=== PATIENT | female | born 1995 | race Caucasian/White ===

== ENCOUNTER 2019-06-22 10:55 | Emergency (ER) | payer SELFPAY ==
[2019-06-22 11:19] VITALS: BP 115/66; PULSE 86; RESP 16; TEMP 36.7; O2SAT 98; BMI 41.1
--- NOTE | 2019-06-22 11:33 | PC.NURSE ---
Patient reports that she got 2 tattoos Friday on her feet. Patient states she started noticing redness in her left foot the day she got it done. Patient reports that it has not went away and the pain has got much worse. Patient states she is unable to put any weight on her foot. Patient reports some pain and redness in the right foot as well.
--- NOTE | 2019-06-22 11:38 | ED_ITS ---
HPI - Wound/Laceration General: Chief Complaint: Wound/Laceration Stated Complaint: tattoo infection Time Seen by Provider: 06/22/19 11:30 Source: patient Mode of arrival: ambulatory Limitations: no limitations History of Present Illness: HPI narrative: Patient had tattoo placed about 3 days ago. On the left foot she has had increased redness and swelling. Patient also had a tattoo done on the right foot at the same time in same fashion without any abnormalities to it. Patient appears well. Patient appears in mild pain. Review of Systems General: Reports: 10 or more systems reviewed and unremarkable except in HPI and below Skin/Breast: Reports: redness PFSH ED PFSH: Social History Smoking and tobacco status: current every day smoker Female Reproductive History: Date of last menstrual period: 06/17/21 Physical Exam Const: COMMON NORMALS: no apparent distress and oriented x3 GENERAL APPEARANCE: cooperative HENMT: COMMON NORMALS: normocephalic, external ears normal, EAC's normal, TM's normal bilaterally and external nose normal HEAD & SCALP: normal to inspection and normocephalic FACE & SINUS: normal facial exam NOSE: external nose normal GENERAL EAR: hearing not grossly impaired EXTERNAL EAR: Yes external ears normal EXTERNAL AUDITORY CANAL: EAC's normal TYMPANIC MEMBRANE: TM's normal bilaterally MOUTH: oral and palatal mucosa normal THROAT: posterior oropharynx normal Eye: COMMON NORMALS: PERRL and EOMs intact bilaterally PUPIL: Yes PERRL Neck/C-Spine: COMMON NORMALS: full ROM and no lymphadenopathy Lymph: LYMPHATIC: no lymphedema noted Chest: COMMONS NORMALS: inspection of chest normal and palpation of chest normal Resp: COMMON NORMALS: normal respiratory effort and clear to auscultation bilaterally AUSCULTATION: clear to auscultation bilaterally Cardio: COMMON NORMALS: regular rate and regular rhythm RATE: regular rate RHYTHM: regular rhythm GI: COMMON NORMALS: normal to inspection, nondistended, normoactive bowel sounds and non-tender : COMMON NORMALS: Yes no CVA tenderness BLADDER/KIDNEY EXAM: Yes no CVA tenderness Back/Pelvis: COMMON NORMALS: no CVA tenderness and thoracic and lumbar spine normal to inspection Extremity: GENERAL: Yes edema (left foot) LEFT LOWER EXTREMITY: Yes foot & digits (redness and swelling left foot) Neuro: COMMON NORMALS: oriented x3, moves all extremities and no focal motor deficits Psych: COMMON NORMALS: mental status grossly normal and cooperative Skin: COMMON NORMALS: no rashes or lesions noted GENERAL SKIN EXAM: no rashes or lesions noted Course Vital Signs: Vital signs: Vital Signs Temperature 98.1 F 06/22/19 11:19 Pulse Rate 86 06/22/19 11:19 Respiratory Rate 16 06/22/19 11:19 Blood Pressure 115/66 06/22/19 11:19 Pulse Oximetry 98 06/22/19 11:19 MDM - Wound/Laceration MDM Narrative: Medical decision making narrative: Patient presents with redness and swelling to the left lower foot. Patient recent tattoo placed. S imilar tattoo was placed on the right foot without any abnormalities. Exam notes redness tenderness and swelling with some warmth to it. Vital signs were normal. Differential diagnosis includes cellulitis, reaction to tattoo ink, DVT. No significant swelling is noted in the calf or pain is noted in the calf so I do not think it is a DVT. Pulses are intact to the extremity. Patient does have tenderness in the area with surrounding redness. Strongly suggests cellulitis. Patient be treated for cellulitis with antibiotics and medication for pain. Patient reports understanding of care plan and need for follow-up Discharge Plan Discharge Patient Disposition: Home, Self-Care Clinical Impression: Cellulitis Qualifiers: Site of cellulitis: extremity Site of cellulitis of extremity: lower extremity Laterality: left Qualified Code(s): L03.116 - Cellulitis of left lower limb Condition: Stable Prescriptions: New hydrocodone-acetaminophen 5-325 mg tablet 1 tab PO Q6H PRN (Reason: pain) Qty: 10 RF: 0 ibuprofen 800 mg tablet 800 mg PO Q8H PRN (Reason: pain) Qty: 30 RF: 0 sulfamethoxazole-trimethoprim [Bactrim DS] 800-160 mg tablet 1 tab PO Q12H 10 Days Qty: 20 RF: 0 No Action No Known Home Medications RF: 0 Discharge Orders: Discharge Order (Routine); Ordered 06/22/19 Ordered By: Michael Sweeney Discharge Diet: Usual diet Discharge Activity: Increase activity as tolerated Patient Instructions: Cellulitis (ED) Activity Restrictions/Additional Instructions: Drink plenty of fluids Activity as tolerated Medications as directed Follow-up with primary care Stand Alone Forms: Work/School Release Coding Level of Care Code ED Entry Level Mechanical Engineer for Chg Fwd Exam Comprehensive
[2019-06-22] MEDS: HYDROcodone-acetaminophen 7.5-325 mg Tablet 1 TAB PO (11:44)
[2019-06-22] MEDS: cefTRIAXone 1,000 mg SDV 1000 MG IM (11:45)
[2019-06-22 12:07] VITALS: BP 97/67; PULSE 74; RESP 17; O2SAT 96
== END 2019-06-22 12:15 | disposition home or self-care (01) ==
PROVIDERS: Emergency Provider Nurse Practitioner Family
DX: L03.116 Cellulitis of left lower limb (principal); F17.200 Nicotine dependence, unspecified, uncomplicated
CPT/HCPCS: 96372; 99281; 99283; J0696

== ENCOUNTER 2019-06-25 09:45 | Emergency (ER) | payer SELFPAY ==
[2019-06-25 09:50] VITALS: BP 109/68; PULSE 104; RESP 18; TEMP 37.6; O2SAT 97; BMI 41.1
--- NOTE | 2019-06-25 09:57 | W.ED.GENADLT ---
HPI - General Adult General: Chief complaint: General Medical Stated complaint: TEMP COUGH Time Seen by Provider: 06/25/19 09:57 Source: patient Mode of arrival: ambulatory Limitations: no limitations History of Present Illness: HPI narrative: 24-year-old female comes in today with cough, fever, nausea and vomiting. Patient states that she was seen on Friday for a infection in her foot which has improved. But for the last 24 to 48 hours she started feeling ill again and having sinus symptoms with occasional vomiting. Patient appears mildly unwell. Patient appears in no pain. Associated symptoms: Reports nausea and vomiting Review of Systems General: Reports: 10 or more systems reviewed and unremarkable except in HPI and below ENMT: Reports: throat pain and nasal congestion Resp: Reports: productive cough GI: Reports: nausea and vomiting PFSH ED PFSH: Social History Smoking and tobacco status: current every day smoker Female Reproductive History: Date of last menstrual period: 06/19/19 Physical Exam Const: COMMON NORMALS: no apparent distress and oriented x3 GENERAL APPEARANCE: cooperative HENMT: COMMON NORMALS: normocephalic, external ears normal, EAC's normal, TM's normal bilaterally and external nose normal HEAD & SCALP: normal to inspection and normocephalic FACE & SINUS: normal facial exam NOSE: external nose normal GENERAL EAR: hearing not grossly impaired EXTERNAL EAR: Yes external ears normal EXTERNAL AUDITORY CANAL: EAC's normal TYMPANIC MEMBRANE: TM's normal bilaterally MOUTH: oral and palatal mucosa normal THROAT: posterior oropharynx normal Eye: COMMON NORMALS: PERRL and EOMs intact bilaterally PUPIL: Yes PERRL Neck/C-Spine: COMMON NORMALS: full ROM and no lymphadenopathy Lymph: LYMPHATIC: no lymphedema noted Chest: COMMONS NORMALS: inspection of chest normal and palpation of chest normal Resp: COMMON NORMALS: normal respiratory effort and clear to auscultation bilaterally AUSCULTATION: clear to auscultation bilaterally Cardio: COMMON NORMALS: regular rate and regular rhythm RATE: regular rate RHYTHM: regular rhythm GI: COMMON NORMALS: normal to inspection, nondistended, normoactive bowel sounds and non-tender : COMMON NORMALS: Yes no CVA tenderness BLADDER/KIDNEY EXAM: Yes no CVA tenderness Back/Pelvis: COMMON NORMALS: no CVA tenderness and thoracic and lumbar spine normal to inspection Extremity: COMMON NORMALS: normal to inspection GENERAL: No edema Neuro: COMMON NORMALS: oriented x3, moves all extremities and no focal motor deficits Psych: COMMON NORMALS: mental status grossly normal and cooperative Skin: COMMON NORMALS: no rashes or lesions noted GENERAL SKIN EXAM: no rashes or lesions noted Course Vital Signs: Vital signs: Vital Signs Temperature 99.7 F H 06/25/19 09:50 Pulse Rate 104 H 06/25/19 09:50 Respiratory Rate 17 06/25/19 10:03 Blood Pressure 109/68 06/25/19 09:50 Pulse Oximetry 97 06/25/19 09:50 MDM - General Adult MDM Narrative: Medical decision making narrative: Patient comes in today with complaints of cough, fever, congestion. Exam notes lungs clear to auscultation. Skin is warm and dry. Abdomen soft nontender. Review of cellulitis to the left foot shows improvement in swelling and redness from previous examination. Differential diagnosis includes influenza, pneumonia, upper respiratory infection. Influenza was positive for type B flu. Reviewed exam with patient with recommendations for treatment. Patient reports understanding agreed to plan. Lab Data: Labs: Lab Results 06/25/19 Range/Units 10:04 Influenza Type A A g Negative (Negative) POC Influenza B Ag Positive H (Negative) Discharge Plan Discharge Patient Disposition: Home, Self-Care Clinical Impression: Influenza B Condition: Stable Prescriptions: New oseltamivir 75 mg capsule 75 mg PO BID 5 Days Qty: 10 RF: 0 No Action sulfamethoxazole-trimethoprim [Bactrim DS] 800-160 mg tablet 1 tab PO Q12H 10 Days Qty: 20 RF: 0 hydrocodone-acetaminophen 5-325 mg tablet 1 tab PO Q6H PRN (Reason: pain) Qty: 10 RF: 0 ibuprofen 800 mg tablet 800 mg PO Q8H PRN (Reason: pain) Qty: 30 RF: 0 Discharge Orders: Discharge Order (Routine); Ordered 06/25/19 Ordered By: Michael Sweeney Discharge Diet: Usual diet Discharge Activity: Increase activity as tolerated Patient Instructions: Influenza (ED) Activity Restrictions/Additional Instructions: Drink plenty of fluids Acetaminophen and ibuprofen for pain and fever Healthy diet Medications as directed Follow-up with primary care in one week as needed Stand Alone Forms: Work/School Release Coding Level of Care Code ED Supervisor Graphite for Giannig Fwd Exam Comprehensive
[2019-06-25 10:03] VITALS: RESP 17
[2019-06-25 10:37] LABS: Influenza A by IFA Negative (Negative); Influenza B by IFA Positive (Negative)
[2019-06-25 10:50] VITALS: PULSE 78; RESP 16; O2SAT 97
== END 2019-06-25 10:51 | disposition home or self-care (01) ==
PROVIDERS: Emergency Provider Nurse Practitioner Family
DX: J11.1 Influenza due to unidentified influenza virus with other respiratory manifestations (principal); F17.200 Nicotine dependence, unspecified, uncomplicated
CPT/HCPCS: 87804; 99281; 99282

== ENCOUNTER 2019-10-10 15:36 | Emergency (ER) | payer SELFPAY ==
[2019-10-10 15:59] VITALS: BP 123/72; PULSE 81; RESP 16; TEMP 36.7; O2SAT 98; BMI 32.0
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
[2019-10-10 18:51] LABS: Add Urine Microscopic? YES; Bilirubin Urine Neg (NEGATIVE); Blood Urine Neg (Negative); Glucose Urine UA Norm (Normal); Ketones Urine Negative (Negative); Leukocyte Esterase Urine 2+ (Negative); Nitrate Urine Negative (Negative); Protein Urine Neg (Negative); Urine Appearance Cloudy (CLEAR); Urine Color Yellow (Yellow); Urobilinogen Urine Norm (Negative); pH Urine 5 (5-7)
[2019-10-10 18:59] LABS: Bacteria Urine 2+; Mucus Urine 4+; Squamous Epithelial Cell Urine 40-55 (0-5); WBC Urine 25-40 /hpf (0-5)
[2019-10-10 19:00] LABS: Add Urine Culture? No
[2019-10-10] MEDS: azithromycin 250 mg Tablet 1000 MG PO (19:12)
[2019-10-10] MEDS: cefTRIAXone 1,000 mg SDV 250 MG IM (19:13)
[2019-10-10 19:15] VITALS: RESP 16
--- NOTE | 2019-10-11 14:52 | PC.NURSE ---
pts STD panel came back positive for gonorrhea. lab result left with DR. lemos
== END 2019-10-10 19:15 | disposition home or self-care (01) ==
PROVIDERS: Emergency Provider Nurse Practitioner Family
DX: N76.0 Acute vaginitis (principal); F17.210 Nicotine dependence, cigarettes, uncomplicated
CPT/HCPCS: 12345; 81001; 81025; 87210; 87491; 87591; 87661; 96372; 99283; J0696; Q0144

== ENCOUNTER 2019-10-18 19:50 | Emergency (ER) | payer SELFPAY ==
[2019-10-18 19:58] VITALS: BP 112/73; PULSE 80; RESP 16; TEMP 36.7; O2SAT 97; BMI 31.8
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
--- NOTE | 2019-10-18 20:09 | XR_ITS ---
WS: [id number] RIGHT KNEE: 3 VIEW(S) TECHNIQUE: AP, oblique(s) and lateral. HISTORY: injury COMPARISON: None available. No fracture or dislocation. No joint space narrowing or osteophytes. No joint effusion. No soft tissue abnormality. XR/XR knee RT 3V* [id number] IMPRESSION: Normal RIGHT knee.
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
[2019-10-18] MEDS: naproxen 500 mg Tablet PO (20:22)
[2019-10-18 20:23] VITALS: PULSE 87
[2019-10-18 21:30] VITALS: BP 145/90; PULSE 79; RESP 16; O2SAT 99
--- NOTE | 2019-10-19 09:50 | DCPLANNER ---
clinic office manager had message to schedule a follow up appointment for patient with ortho. clinic office manager called the ortho clinic, spoke with Pat, gave clinic patients information. clinic office manager was told that patients information would be printed and reviewed. Clinic will call case specialist and patient with appointment information.
--- NOTE | 2019-10-20 08:40 | DCPLANNER ---
Patient has a follow up appointment scheduled for , October 21, [address] at 2:[address] Chen. Clinic will call patient with appointment information.
--- NOTE | 2019-10-26 15:17 | DCPLANNER ---
Patient did attend appointment scheduled for 10.21.19 with ortho.
== END 2019-10-18 21:32 | disposition home or self-care (01) ==
PROVIDERS: Emergency Provider Emergency Medicine
DX: S83.91XA Sprain of unspecified site of right knee, initial encounter (principal); W50.0XXA Accidental hit or strike by another person, initial encounter; F17.210 Nicotine dependence, cigarettes, uncomplicated
CPT/HCPCS: 12345; 29530; 73562; 73590; 73610; 99281; 99283; E0114

== ENCOUNTER 2019-10-21 16:41 | Outpatient (CLI) | payer SELFPAY | END 2019-10-21 16:42 | disposition home or self-care (01) | LOC: SPT 16:42 | PROVIDERS: Visit Provider Specialist | DX: Z46.89 Encounter for fitting and adjustment of other specified devices (principal); S86.911D Strain of unspecified muscle(s) and tendon(s) at lower leg level, right leg, subsequent encounter; X58.XXXD Exposure to other specified factors, subsequent encounter | CPT/HCPCS: 97760; L1832 ==

== ENCOUNTER 2020-01-24 11:55 | Emergency (ER) | payer SELFPAY ==
[2020-01-24 12:00] VITALS: BP 116/76; PULSE 92; RESP 18; TEMP 37.1; O2SAT 98; BMI 32.9
[2020-01-24 13:24] LABS: Basophils % 0.4 %; Eosinophils # 0.2 10^3/uL (0.0-0.8); Eosinophils % 2.4 %; Hemoglobin 13.1 g/dL (11.5-15.3); Lymphocytes % 24.7 %; Mean Corpuscular HGB Conc 31.2 g/dL (30.0-36.0); Mean Corpuscular Hemoglobin 27.1 pg (28.0-34.0); Mean Corpuscular Volume 86.8 fL (81-99); Mean Platelet Volume 9.2 fL (7.4-10.4); Monocytes # 0.5 10^3/uL (0.2-0.9); Monocytes % 5.5 %; Neutrophils # 5.44 10^3/uL (1.8-7.7); Neutrophils % 66.6 %; Nucleated Red Blood Cells % 0 %; Platelet Count 393 10^3/cmm (130-400); Red Blood Count 4.84 10^6/uL (4.1-5.3); White Blood Count 8.2 10^3/uL (4.0-10.0)
[2020-01-24 13:28] VITALS: RESP 16
[2020-01-24 13:48] LABS: Alanine Aminotransferase 20 U/L (0-33); Albumin Level 4.3 g/dL (3.5-5.2); Alkaline Phosphatase 81 IU/L (35-105); Aspartate Amino Transferase 21 U/L (0-32); Blood Urea Nitrogen 8 mg/dL (6-20); Calcium 9.7 mg/dL (8.5-10.5); Carbon Dioxide 24 mmol/L (22-29); Chloride 104 mmol/L (98-107); Glomerular Filtration Rate 102.8 mL/min (90-130); Glucose 97 mg/dL (65-115); Osmolality Calculated 284 mOsm/kg (285-295); Sodium 138 mmol/L (136-145); Total Bilirubin 0.2 mg/dL (0.15-1.2); Total Protein 7.3 g/dL (6.6-8.7)
[2020-01-24 13:51] LABS: Add Urine Microscopic? YES; Bilirubin Urine Neg (Negative); Blood Urine 3+ (Negative); Glucose Urine UA Norm (Normal); Ketones Urine Negative (Negative); Leukocyte Esterase Urine Trace (Negative); Nitrate Urine Negative (Negative); Protein Urine Neg (Negative); Urine Appearance SL Hazy (CLEAR); Urine Color Yellow (Yellow); Urobilinogen Urine Norm (Negative); pH Urine 7 (5-7)
--- NOTE | 2020-01-24 13:52 | ED_ITS ---
HPI - Female Genitourinary General: Chief complaint: Urogenital-Female Stated complaint: , VAGINAL SPOTTING Time Seen by Provider: 01/24/20 12:51 History of Present Illness: HPI Narrative: 24-year-old female patient presents to the emergency department with complaints of positive test x2 at home, onset of vaginal bleeding/spotting this morning. She reports spotting is not enough to wear a pad or tampon. She states only present when she wipes. She reports last test was 5 days ago, last menstrual period 12/15/2019. 6 Para 2 living 2 AB 3 approx 6 weeks gestation MD elicited complaint: vaginal bleeding (Spotting) Severity: mild Severity scale (1-10): 3 Quality of pain: cramping and dull Consistency: intermittent Vaginal discharge: other (Peak) Vaginal bleeding: scant Associated symptoms: Reports abdominal pain (lower pelvic); Deny headache(s) or nausea Date of Last Menstrual Period: 12/15/19 Review of Systems General: Reports: 10 or more systems reviewed and unremarkable except in HPI and below Const: Denies: fever(s), chills or diaphoresis Eyes: Denies: blurry vision or eye redness ENMT: Denies: throat pain, dental pain or disequilibrium Card: Denies: chest pain, palpitations or irregular heart rhythm Resp: Denies: dyspnea, productive cough, non-productive cough or wheezing GI: Reports: abdominal pain (lower pelvic); Denies: nausea or vomiting : Reports: vaginal bleeding; Denies: difficulty voiding or dysuria Musc: Denies: back pain Skin/Breast: Denies: rash or pruritus Neuro: Denies: headache(s), weakness in extremities or behavioral changes Fabiano/Lymph: Denies: easy bruising PFSH ED PFSH: Family History Other Hypertension Denies family history of Diabetes CAD (coronary artery disease) Stroke Social History Smoking and tobacco status: current every day smoker Female Reproductive History: Date of last menstrual period: 12/15/19 Physical Exam Const: COMMON NORMALS: no acute distress, patient oriented x3, healthy appearing and alert GENERAL APPEARANCE: cooperative, comfortable and well hydrated HENMT: COMMON NORMALS: normocephalic, Normal external nose present and moist oral mucous membranes HEAD & SCALP: normocephalic NOSE: Normal external nose present Eye: COMMON NORMALS: Equal, round and reactive pupils present and EOMs intact bilaterally GENERAL EYE: appearance normal, both eyes and all related structures PUPIL: Yes Equal, round and reactive pupils present Neck/C-Spine: COMMON NORMALS: full ROM and no lymphadenopathy GENERAL: Yes normal visual inspection and Yes trachea midline CERVICAL SPINE: Yes cervical ROM normal Lymph: LYMPHATIC: no lymphadenopathy noted Chest: COMMONS NORMALS: normal inspection of the chest Resp: COMMON NORMALS: normal respiratory effort and clear to auscultation bilaterally AUSCULTATION: clear to auscultation bilaterally Cardio: COMMON NORMALS: regular rhythm, S1 normal heart sound present and S2 normal heart sound present RHYTHM: regular rhythm HEART SOUNDS: S1 normal heart sound present and S2 normal heart sound present GI: COMMON NORMALS: Soft to palpation and non-tender INSPECTION: Yes normal to inspection PALPATION: Yes Soft to palpation : COMMON NORMALS: Yes no CVA tenderness, Yes normal external appearance, Yes normal appearance of the vagina, Yes normal bimanual exam and Yes No adnexal tenderness BLADDER/KIDNEY EXAM: Yes bladder normal to palpation and Yes no CVA tenderness EXTERNAL FEMALE EXAM: Yes normal appearance of the urethra SPECULUM EXAM - VAGINA: No laceration, No tissue present in vagina and No tenderness SPECULUM EXAM - CERVIX: No Cervical os open, No Tissue present in the cervical os, Yes Abnormal cervical discharge present (pink clear) and No Cervical tenderness present BIMANUAL EXAM - VAGINA & UTERUS: Yes normal bimanual exam, No Cervical tenderness present, Yes bladder normal to palpation, Yes uterine size normal and Yes consistency normal BIMANUAL EXAM - ADNEXA, OTHER: Yes normal adnexae OB/EXTERNAL & SPECULUM: external exam normal; no tissue noted in vagina and Cervical os open Back/Pelvis: COMMON NORMALS: no CVA tenderness and thoracic and lumbar spine normal to inspection Extremity: COMMON NORMALS: normal to inspection and capillary refill normal Neuro: COMMON NORMALS: patient oriented x3 and no focal motor deficits SENSORIUM/ORIENTATION: Yes alert Psych: COMMON NORMALS: mental status grossly normal, Normal thought process present and cooperative ACTIVITY/MOTOR BEHAVIOR: Yes appropriate eye contact THOUGHT PROCESS: Normal thought process present Skin: COMMON NORMALS: no rashes or lesions noted and turgor normal GENERAL SKIN EXAM: no rashes or lesions noted and turgor normal Course ED course: 24-year-old female patient presents to the emergency department with vaginal bleeding, confirmed test at home approximately 5 days ago. She reports onset of vaginal bleeding that started this morning. Transvaginal ultrasound revealed debris in endometrium, low beta hCG noted, Rh+, case discussed with Dr. Estrada Cuellar, patient will follow-up with [facility] PROGRAM [facility]IST for repeat beta hCG to ensure numbers are dropping. Ectopic was discussed with the patient, questions were answered, results of test completed today were discussed with the patient. Vital Signs: Vital signs: Vital Signs Temperature 98.7 F 01/24/20 12:00 Pulse Rate 76 01/24/20 16:30 Respiratory Rate 16 01/24/20 16:30 Blood Pressure 110/76 01/24/20 16:30 Pulse Oximetry 96 01/24/20 16:30 MDM - Female Lab Data: Labs: Lab Results 01/24/20 01/24/20 01/24/20 Range/Units 13:12 13:12 13:12 WBC 8.2 (4.0-10.0) 10^3/ uL RBC 4.84 (4.1-5.3) 10^6/u L Hgb 13.1 (11.5-15.3) g/dL Hct 42.0 (37.0-47.0) % MCV 86.8 (81-99) fL MCH 27.1 L (28.0-34.0) pg MCHC 31.2 (30.0-36.0) g/dL RDW 15.0 (12.1-15.1) % Plt Count 393 (130-400) 10^3/c mm MPV 9.2 (7.4-10.4) fL Neut % (Auto) 66.6 % Lymph % (Auto) 24.7 % [place] % (Auto) 5.5 % Eos % (Auto) 2.4 % Baso % (Auto) 0.4 % Neut # (Auto) 5.44 (1.8-7.7) 10^3/u L Lymph # (Auto) 2.0 (0.8-4.8) 10^3/u L [place] # (Auto) 0.5 (0.2-0.9) 10^3/u L Eos # (Auto) 0.2 (0.0-0.8) 10^3/u L Baso # (Auto) 0.0 (0.0-0.1) 10^3/u L Nucleated RBC % (a uto) 0 % Nucleated RBCs # 0.0 /100WBC Sodium 138 (136-145) mmol/L Potassium 4.0 (3.5-5.1) mmol/L Chloride 104 (98-107) mmol/L Carbon Dioxide 24 (22-29) mmol/L Anion Gap 14.0 (5-19) BUN 8 (6-20) mg/dL Creatinine 0.7 (0.5-0.9) mg/dL GFR Calculation 102.8 (90-130) mL/min Glucose 97 (65-115) mg/dL Calculated Osmolal ity 284 L (285-295) mOsm/k g Calcium 9.7 (8.5-10.5) mg/dL Total Bilirubin 0.2 (0.15-1.2) mg/dL AST 21 (0-32) U/L ALT 20 (0-33) U/L Alkaline Phosphata se 81 (35-105) IU/L Total Protein 7.3 (6.6-8.7) g/dL Albumin 4.3 (3.5-5.2) g/dL Globulin 3.0 (1.3-4.6) g/dL Ser , Yusuf i-Qnt mIU/mL Urine Color (Yellow) Urine Appearance (CLEAR) Urine pH (5-7) Ur Specific Gravit y (1.005-1.030) Urine Protein (Negative) Urine Glucose (UA) (Normal) Urine Ketones (Negative) Urine Blood (Negative) Urine Nitrate (Negative) Urine Bilirubin (Negative) Urine Urobilinogen (Negative) mg/dL Ur Leukocyte Karrie ase (Negative) Urine RBC (0-2) /hpf Urine WBC (0-5) /hpf Ur Squamous Epith Cells (0-5) /hpf Amorphous Sediment Urine Bacteria (NONE) /hpf Urine HCG, Qual Positive H (Negative) Blood Type Rho(D) Type 01/24/20 01/24/20 01/24/20 Range/Units 13:12 13:12 13:18 WBC (4.0-10.0) 10^3/ uL RBC (4.1-5.3) 10^6/u L Hgb (11.5-15.3) g/dL Hct (37.0-47.0) % MCV (81-99) fL MCH (28.0-34.0) pg MCHC (30.0-36.0) g/dL RDW (12.1-15.1) % Plt Count (130-400) 10^3/c mm MPV (7.4-10.4) fL Neut % (Auto) % Lymph % (Auto) % [place] % (Auto) % Eos % (Auto) % Baso % (Auto) % Neut # (Auto) (1.8-7.7) 10^3/u L Lymph # (Auto) (0.8-4.8) 10^3/u L [place] # (Auto) (0.2-0.9) 10^3/u L Eos # (Auto) (0.0-0.8) 10^3/u L Baso # (Auto) (0.0-0.1) 10^3/u L Nucleated RBC % (a uto) % Nucleated RBCs # /100WBC Sodium (136-145) mmol/L Potassium (3.5-5.1) mmol/L Chloride (98-107) mmol/L Carbon Dioxide (22-29) mmol/L Anion Gap (5-19) BUN (6-20) mg/dL Creatinine (0.5-0.9) mg/dL GFR Calculation (90-130) mL/min Glucose (65-115) mg/dL Calculated Osmolal ity (285-295) mOsm/k g Calcium (8.5-10.5) mg/dL Total Bilirubin (0.15-1.2) mg/dL AST (0-32) U/L ALT (0-33) U/L Alkaline Phosphata se (35-105) IU/L Total Protein (6.6-8.7) g/dL Albumin (3.5-5.2) g/dL Globulin (1.3-4.6) g/dL Ser , Yusuf i-Qnt 91.76 mIU/mL Urine Color Yellow (Yellow) Urine Appearance Sl hazy (CLEAR) Urine pH 7 (5-7) Ur Specific Gravit y 1.010 (1.005-1.030) Urine Protein Neg (Negative) Urine Glucose (UA) Norm (Normal) Urine Ketones Negative (Negative) Urine Blood 3+ H (Negative) Urine Nitrate Negative (Negative) Urine Bilirubin Neg (Negative) Urine Urobilinogen Norm (Negative) mg/dL Ur Leukocyte Karrie ase Trace H (Negative) Urine RBC 5-10 H (0-2) /hpf Urine WBC 5-10 H (0-5) /hpf Ur Squamous Epith Cells 15-25 H (0-5) /hpf Amorphous Sediment Not Reportable Urine Bacteria 1+ H (NONE) /hpf Urine HCG, Qual (Negative) Blood Type A Positive Rho(D) Type Positive Imaging Data: US OB: Radiologist's impression: [place] [address] Ultrasound Report Signed Patient: Felicitas Cuevas #: [id number] : 1995Acct#:[id number] Age/Sex: 24 / FADM Date: 01/24/20 Loc: ERRoom/Bed: Attending Dr: Ordering Provider/Ordering MD: Manisha Russell Date of Service: 01/24/20 Procedure(s): US OB <=14 wk fetus w transvag Accession Number(s): [id number] Report Number: [id number] WS: [id number] EARLY OBSTETRICAL ULTRASOUND (<14 WEEKS). HISTORY: and bleeding. COMPARISON: None available. Transvaginal and transabdominal imaging is performed. Heterogeneous enlarged endometrium filled with blood products and fluid. Thickening of the endometrium is 1.5 cm. No intrauterine gestational sac or yolk sac. No free fluid in the cul-de-sac. RIGHT ovary measures 1.2 x 1.4 x 2.9 cm. LEFT ovary measures 4.4 x 2.5 x 1.6 cm. US/US OB <=14 wk fetus w transvag IMPRESSION: 1. No intrauterine gestational sac. 2. Heterogeneous debris within the endometrial cavity. Findings consistent with an incomplete spontaneous . 3. If there is a positive beta hCG ectopic is not excluded without visualizing an IUP. Dictated By:Marisabel Nichoals DO Signed By:Marisabel Nicholas DOSigned Date/Time:01/24/20 1531 DD/ 1528 Discharge Plan Discharge Patient Disposition: Home Clinical Impression: Spontaneous in first trimester, Abnormal vaginal bleeding Condition: Stable Prescriptions: No Action No Known Home Medications RF: 0 Discharge Orders: Discharge Order (Routine); Ordered 01/24/20 Ordered By: Manisha Russell Discharge Diet: Advance as tolerated Discharge Activity: Limit activity as instructed Patient Instructions: Spontaneous Miscarriage (ED) Activity Restrictions/Additional Instructions: No sexual contact until cleared by [facility] You will need to follow-up with [facility] for repeat blood work Return to the emergency department if you develop heavy bleeding, symptoms of passing out, worsening abdominal pain Drink plenty of fluids Stand Alone Forms: Work/School Release Discharge Date/Time: 01/24/20 17:15 Coding Level of Care Code ED Title Curator for Giann[employer] Fwd Exam Comprehensive
[2020-01-24 13:57] LABS: Squamous Epithelial Cell Urine 15-25 /hpf (0-5)
[2020-01-24 13:58] LABS: Bacteria Urine 1+ /hpf
[2020-01-24 13:59] LABS: Add Urine Culture? No
--- NOTE | 2020-01-24 14:42 | US_ITS ---
WS: [id number] EARLY OBSTETRICAL ULTRASOUND (<14 WEEKS). HISTORY: and bleeding. COMPARISON: None available. Transvaginal and transabdominal imaging is performed. Heterogeneous enlarged endometrium filled with blood products and fluid. Thickening of the endometrium is 1.5 cm. No intrauterine gestational sac or yolk sac. No free fluid in the cul-de-sac. RIGHT ovary measures 1.2 x 1.4 x 2.9 cm. LEFT ovary measures 4.4 x 2.5 x 1.6 cm. US/US OB <=14 wk fetus w transvag IMPRESSION: 1. No intrauterine gestational sac. 2. Heterogeneous debris within the endometrial cavity. Findings consistent wit h an incomplete spontaneous . 3. If there is a positive beta hCG ectopic is not excluded without v isualizing an IUP.
[2020-01-24 15:02] LABS: HCG Quantitative 91.76 mIU/mL
--- NOTE | 2020-01-24 15:44 | PC.NURSE ---
VAGINAL SPECIMENS COLLECTED BY PROVIDER POOL.
[2020-01-24 16:30] VITALS: BP 110/76; PULSE 76; RESP 16; O2SAT 96
--- NOTE | 2020-01-25 15:07 | DCPLANNER ---
pre press manager had message to schedule a followup appointment for patient with [facility]. pre press manager called the clinic, spoke with Maribel, gave clinic patients information. pre press manager was told that patients information would be printed and reviewed. Clinic will call patient with appointment information.
--- NOTE | 2020-01-26 07:56 | DCPLANNER ---
Patient has a follow up appointment scheduled for , January 27, 2020 at 2:15 at [facility]. Clinic will call patient with appointment information.
--- NOTE | 2020-02-18 18:00 | DCPLANNER ---
Patient had a follow up appointment scheduled for 01.27.20 with [facility] - patient did attend appointment.
== END 2020-01-24 17:15 | disposition home or self-care (01) ==
PROVIDERS: Emergency Provider Nurse Practitioner Family
DX: O03.9 Complete or unspecified spontaneous abortion without complication (principal); O99.331 Smoking (tobacco) complicating pregnancy, first trimester; F17.210 Nicotine dependence, cigarettes, uncomplicated; Z3A.01 Less than 8 weeks gestation of pregnancy
CPT/HCPCS: 12345; 36415; 76801; 76817; 80053; 81001; 81025; 84702; 85025; 86900; 87210; 99283

== ENCOUNTER → 2020-01-27 14:48 | Outpatient (BNVA) | payer SELFPAY | PROVIDERS: Visit Provider Obstetrics & Gynecology | DX: O20.0 Threatened abortion (principal) | CPT/HCPCS: 84702 ==

== ENCOUNTER → 2020-01-31 15:20 | Outpatient (BNVA) | payer SELFPAY | PROVIDERS: Visit Provider Obstetrics & Gynecology | DX: O20.0 Threatened abortion (principal) | CPT/HCPCS: 84702 ==

== ENCOUNTER 2020-06-01 15:33 | Inpatient (IN) | payer SELFPAY ==
[2020-06-01 15:43] VITALS: BP 147/93; PULSE 83; RESP 20; TEMP 36.7; O2SAT 95; BMI 38.0
[2020-06-01 16:46] LABS: Basophils # 0.1 10^3/uL (0.0-0.1); Basophils % 0.7 %; Eosinophils # 0.1 10^3/uL (0.0-0.8); Eosinophils % 1.6 %; Hematocrit 41.7 % (37.0-47.0); Hemoglobin 13.4 g/dL (11.5-15.3); Lymphocytes # 2.3 10^3/uL (0.8-4.8); Lymphocytes % 26.9 %; Mean Corpuscular HGB Conc 32.1 g/dL (30.0-36.0); Mean Corpuscular Hemoglobin 27.9 pg (28.0-34.0); Mean Corpuscular Volume 86.9 fL (81-99); Mean Platelet Volume 9.4 fL (7.4-10.4); Monocytes # 0.5 10^3/uL (0.2-0.9); Monocytes % 5.5 %; Neutrophils # 5.67 10^3/uL (1.8-7.7); Neutrophils % 65.1 %; Nucleated Red Blood Cells % 0 %; Platelet Count 360 10^3/cmm (130-400); Red Cell Distribution Width 14.4 % (12.1-15.1); White Blood Count 8.7 10^3/uL (4.0-10.0)
[2020-06-01 17:02] LABS: Amorphous Sediment Urine 2+ /hpf; Bacteria Urine 1+ /hpf; Bilirubin Urine Neg (Negative); Blood Urine Neg (Negative); Glucose Urine UA Norm (Normal); Ketones Urine Negative (Negative); Leukocyte Esterase Urine 2+ (Negative); Nitrate Urine Negative (Negative); Protein Urine Neg (Negative); RBC Urine 0-4 /hpf (0-2); Specific Gravity, Urine 1.015 (1.005-1.030); Squamous Epithelial Cell Urine 0-4 /hpf (0-5); Urine Appearance Cloudy (CLEAR); Urine Color Yellow (Yellow); Urobilinogen Urine Norm (Negative); WBC Urine 0-4 /hpf (0-5); pH Urine 7 (5-7)
[2020-06-01 17:03] LABS: HCG, Serum Qual Negative (Negative)
[2020-06-01 17:03] LABS: Amphetamines Screen Urine Negative (Negative); Barbiturates Screen Urine Negative (Negative); Benzodiazepines Screen Urine Negative (Negative); Cocaine Screen Urine Negative (Negative); Opiate Screen Urine Negative (Negative); PCP Screen Urine Negative (Negative); THC Screen Urine Positive (Negative)
[2020-06-01 17:08] LABS: Alanine Aminotransferase 13 U/L (0-33); Albumin Level 4.5 g/dL (3.5-5.2); Alkaline Phosphatase 65 IU/L (35-105); Anion Gap 11.9 (5-19); Aspartate Amino Transferase 13 U/L (0-32); Blood Urea Nitrogen 7 mg/dL (6-20); Calcium 9.2 mg/dL (8.5-10.5); Carbon Dioxide 24 mmol/L (22-29); Chloride 106 mmol/L (98-107); Creatinine Clr Calc Pharmacy 159.4067; Globulin 2.9 g/dL (1.3-4.6); Glomerular Filtration Rate 121.8 mL/min (90-130); Glucose 106 mg/dL (65-115); Osmolality Calculated 284 mOsm/kg (285-295); Potassium 3.9 mmol/L (3.5-5.1); Salicylate 0.6 mg/dL (3-10); Sodium 138 mmol/L (136-145); Total Bilirubin 0.3 mg/dL (0.15-1.2); Total Protein 7.4 g/dL (6.6-8.7)
[2020-06-01 17:24] LABS: Acetaminophen < 5.0 ug/mL (10-30); Alcohol Level < 10 mg/dL (0-10)
[2020-06-01 17:50] VITALS: BP 118/74; PULSE 62; RESP 15; TEMP 36.6; O2SAT 98
[2020-06-01 18:42] VITALS: BP 105/69; PULSE 59; RESP 18; O2SAT 99
--- NOTE | 2020-06-01 19:35 | ED_ITS ---
HPI - Psych General: Chief Complaint: Psychiatric Symptoms Stated Complaint: SI, PSYCH SYMPTOMS Time Seen by Provider: 06/01/20 16:09 Source: patient Mode of arrival: ambulatory Limitations: no limitations History of Present Illness: HPI Narrative: This is a 25-year-old female patient who currently has lots of life stressors and presents to the emergency department with suicidal ideation. She had called the hotline and told him that she was suicidal and also was planning to relapse and begin using methamphetamines again. Last time that the patient relapse was a year ago but she does not want to. She feels like the stressors in her life are going to drive her to start using again. She also plans to jump off a bridge in an attempt to kill herself. She would like help and so she is here to be help. She is pretty tearful during my evaluation. MD complaint: suicidal ideation Onset (ago): day(s) Duration: constant and getting worse History of same: Yes Relieving factors: none Exacerbating factors: none Associated psychiatric symptoms: depression and suicidal ideation Associated symptoms: Reports depression and suicidal ideation; Deny auditory hallucinations, visual hallucinations, delusions, homicidal ideation or racing thoughts If self harm: admits thoughts of self harm and has plan Review of Systems General: Reports: 10 or more systems reviewed and unremarkable except in HPI and below Const: Denies: fever(s), chills or body aches Eyes: Denies: change in vision or blurry vision ENMT: Denies: throat pain, enlarged tonsils, odynophagia, hoarseness, mouth pain or swelling of lips/tongue Card: Denies: palpitations, irregular heart rhythm, edema or swelling of feet/ankles Resp: Denies: dyspnea, productive cough or non-productive cough GI: Denies: abdominal pain, nausea or vomiting : Denies: flank pain, difficulty voiding, dysuria, urinary frequency, urinary urgency or urinary hesitancy Musc: Denies: neck pain, back pain or extremity swelling Skin/Breast: Denies: rash, pruritus or erythema Neuro: Denies: headache(s), numbness in extremities or weakness in extremities Psych: Reports: depression and suicidal ideation; Denies: visual hallucinations, auditory hallucinations or homicidal ideation Endo: Denies: polyuria, polydipsia or tired all the time [facility] ED PFSH: Medical History Blood type A+ History of depression Surgical History H/O umbilical hernia repair (~2000) Performed in [place], [place] History of placement of ear tubes (~1999) Page 4 S/P ear surgery (~2008) Eardrum surgery. Performed in [place], [place] Family History Mother Diabetes Stroke Hypertension Sister Diabetes Grandmother Diabetes Maternal Breast cancer Maternal Hypertension Maternal Family/Other Diabetes Maternal aunt Ovarian cancer Maternal great aunt, Maternal great grandmother Breast cancer Maternal aunt, Maternal great aunt Social History Smoking and tobacco status: current every day smoker cigarettes Alcohol intake: current Alcohol intake frequency: few times a month Other details last substance use: Marijuana Female Reproductive History: Date of last menstrual period: 12/15/19 Physical Exam Const: COMMON NORMALS: no acute distress, average body habitus, patient oriented x3, no limitations, healthy appearing, alert and well nourished HENMT: COMMON NORMALS: normocephalic, atraumatic and moist oral mucous membranes HEAD & SCALP: normocephalic and atraumatic Neck/C-Spine: COMMON NORMALS: no meningeal signs and no JVD Resp: COMMON NORMALS: normal respiratory effort, No retractions, No use of accessory muscles, clear to auscultation bilaterally and percussion normal AUSCULTATION: clear to auscultation bilaterally PERCUSSION: percussion normal Cardio: COMMON NORMALS: no JVD, regular rate, regular rhythm, S1 normal heart sound present, S2 normal heart sound present, No gallops present (Cardio), No clicks present (Cardio), No murmurs present (Cardio), No rub (Cardio) and Peripheral pulses 2+ throughout RATE: regular rate RHYTHM: regular rhythm HEART SOUNDS: S1 normal heart sound present and S2 normal heart sound present PERIPHERAL PULSES: Peripheral pulses 2+ throughout GI: COMMON NORMALS: Normal to inspection, nondistended, normoactive bowel sounds present, Soft to palpation, non-tender, No hepatosplenomegaly present, no masses and no bruits PALPATION: Yes Soft to palpation and Yes No hepatosplenomegaly present Extremity: COMMON NORMALS: normal to inspection, full ROM, capillary refill normal, no calf tenderness and no pedal edema Neuro: COMMON NORMALS: patient oriented x3 SENSORIUM/ORIENTATION: Yes alert MENINGEAL SIGNS: Yes no meningeal signs Psych: THOUGHT CONTENT: No delusions Skin: COMMON NORMALS: no rashes or lesions noted, no wounds, turgor normal, no jaundice, no petechiae and no mottling GENERAL SKIN EXAM: no rashes or lesions noted and turgor normal MDM - Psych MDM Narrative: Medical decision making narrative: 25-year-old female patient who presented to the ED with suicidal ideation. She also has a plan. She is medically cleared and admitted to the neuropsychiatric unit for further evaluation and management. She is voluntary and wants help. Medical Records: Attestation: I reviewed the patient's medical records. Lab Data: Attestation: I reviewed the patient's lab results. Labs: Lab Results 06/01/20 06/01/20 06/01/20 Range/Units 16:08 16:08 16:32 WBC 8.7 (4.0-10.0) 10^3/ uL RBC 4.80 (4.1-5.3) 10^6/u L Hgb 13.4 (11.5-15.3) g/dL Hct 41.7 (37.0-47.0) % MCV 86.9 (81-99) fL MCH 27.9 L (28.0-34.0) pg MCHC 32.1 (30.0-36.0) g/dL RDW 14.4 (12.1-15.1) % Plt Count 360 (130-400) 10^3/c mm MPV 9.4 (7.4-10.4) fL Neut % (Auto) 65.1 % Lymph % (Auto) 26.9 % [place] % (Auto) 5.5 % Eos % (Auto) 1.6 % Baso % (Auto) 0.7 % Neut # (Auto) 5.67 (1.8-7.7) 10^3/u L Lymph # (Auto) 2.3 (0.8-4.8) 10^3/u L [place] # (Auto) 0.5 (0.2-0.9) 10^3/u L Eos # (Auto) 0.1 (0.0-0.8) 10^3/u L Baso # (Auto) 0.1 (0.0-0.1) 10^3/u L Nucleated RBC % (a uto) 0 % Nucleated RBCs # 0.0 /100WBC Sodium (136-145) mmol/L Potassium (3.5-5.1) mmol/L Chloride (98-107) mmol/L Carbon Dioxide (22-29) mmol/L Anion Gap (5-19) BUN (6-20) mg/dL Creatinine (0.5-0.9) mg/dL GFR Calculation (90-130) mL/min Glucose (65-115) mg/dL Calculated Osmolal ity (285-295) mOsm/k g Calcium (8.5-10.5) mg/dL Total Bilirubin (0.15-1.2) mg/dL AST (0-32) U/L ALT (0-33) U/L Alkaline Phosphata se (35-105) IU/L Total Protein (6.6-8.7) g/dL Albumin (3.5-5.2) g/dL Globulin (1.3-4.6) g/dL HCG, Qual (Negative) Urine Color Yellow (Yellow) Urine Appearance Cloudy (CLEAR) Urine pH 7 (5-7) Ur Specific Gravit y 1.015 (1.005-1.030) Urine Protein Neg (Negative) Urine Glucose (UA) Norm (Normal) Urine Ketones Negative (Negative) Urine Blood Neg (Negative) Urine Nitrate Negative (Negative) Urine Bilirubin Neg (Negative) Urine Urobilinogen Norm (Negative) mg/dL Ur Leukocyte Karrie ase 2+ H (Negative) Urine RBC 0-4 H (0-2) /hpf Urine WBC 0-4 H (0-5) /hpf Ur Squamous Epith Cells 0-4 H (0-5) /hpf Amorphous Sediment 2+ /hpf Urine Bacteria 1+ H (NONE) /hpf Salicylates (3-10) mg/dL Urine Opiates Scre en Negative (Negative) ng/mL Acetaminophen (10-30) ug/mL Ur Barbiturates Sc reen Negative (Negative) ng/mL Ur Phencyclidine S crn Negative (Negative) ng/mL Ur Amphetamines Sc reen Negative (Negative) ng/mL U Benzodiazepines Scrn Negative (Negative) ng/mL Urine Cocaine Scre en Negative (Negative) ng/mL U Marijuana (THC) Screen Positive H (Negative) ng/mL Ethyl Alcohol (0-10) mg/dL 06/01/20 06/01/20 Range/Units 16:32 16:32 WBC (4.0-10.0) 10^3/ uL RBC (4.1-5.3) 10^6/u L Hgb (11.5-15.3) g/dL Hct (37.0-47.0) % MCV (81-99) fL MCH (28.0-34.0) pg MCHC (30.0-36.0) g/dL RDW (12.1-15.1) % Plt Count (130-400) 10^3/c mm MPV (7.4-10.4) fL Neut % (Auto) % Lymph % (Auto) % [place] % (Auto) % Eos % (Auto) % Baso % (Auto) % Neut # (Auto) (1.8-7.7) 10^3/u L Lymph # (Auto) (0.8-4.8) 10^3/u L [place] # (Auto) (0.2-0.9) 10^3/u L Eos # (Auto) (0.0-0.8) 10^3/u L Baso # (Auto) (0.0-0.1) 10^3/u L Nucleated RBC % (a uto) % Nucleated RBCs # /100WBC Sodium 138 (136-145) mmol/L Potassium 3.9 (3.5-5.1) mmol/L Chloride 106 (98-107) mmol/L Carbon Dioxide 24 (22-29) mmol/L Anion Gap 11.9 (5-19) BUN 7 (6-20) mg/dL Creatinine 0.6 (0.5-0.9) mg/dL GFR Calculation 121.8 (90-130) mL/min Glucose 106 (65-115) mg/dL Calculated Osmolal ity 284 L (285-295) mOsm/k g Calcium 9.2 (8.5-10.5) mg/dL Total Bilirubin 0.3 (0.15-1.2) mg/dL AST 13 (0-32) U/L ALT 13 (0-33) U/L Alkaline Phosphata se 65 (35-105) IU/L Total Protein 7.4 (6.6-8.7) g/dL Albumin 4.5 (3.5-5.2) g/dL Globulin 2.9 (1.3-4.6) g/dL HCG, Qual Negative (Negative) Urine Color (Yellow) Urine Appearance (CLEAR) Urine pH (5-7) Ur Specific Gravit y (1.005-1.030) Urine Protein (Negative) Urine Glucose (UA) (Normal) Urine Ketones (Negative) Urine Blood (Negative) Urine Nitrate (Negative) Urine Bilirubin (Negative) Urine Urobilinogen (Negative) mg/dL Ur Leukocyte Karrie ase (Negative) Urine RBC (0-2) /hpf Urine WBC (0-5) /hpf Ur Squamous Epith Cells (0-5) /hpf Amorphous Sediment /hpf Urine Bacteria (NONE) /hpf Salicylates 0.6 L (3-10) mg/dL Urine Opiates Scre en (Negative) ng/mL Acetaminophen < 5.0 L (10-30) ug/mL Ur Barbiturates Sc reen (Negative) ng/mL Ur Phencyclidine S crn (Negative) ng/mL Ur Amphetamines Sc reen (Negative) ng/mL U Benzodiazepines Scrn (Negative) ng/mL Urine Cocaine Scre en (Negative) ng/mL U Marijuana (THC) Screen (Negative) ng/mL Ethyl Alcohol < 10 (0-10) mg/dL Discharge Plan Discharge Patient Disposition: Admitted As Inpatient Admit Provider: Jarrett Sahni Clinical Impression: Suicidal ideation Condition: Stable Coding Level of Care Code ED Ophthalmic Medical Technician for Mindy Fwd Exam Problem Focused
[2020-06-01] MEDS: acetaminophen 325 mg Tablet 650 MG PO (19:44)
[2020-06-01 21:23] VITALS: BP 118/74; PULSE 62; RESP 15; TEMP 36.6; O2SAT 15
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
[2020-06-02 06:00] VITALS: BP 108/59; PULSE 63; RESP 16; TEMP 36.6; O2SAT 98
--- NOTE | 2020-06-02 08:26 | PC.NURSE ---
Anxiety/SI While nurse was assessing patient, she reports increased anxiety, but states she does not want to take medication for this. She states she is having thoughts of harming herself, with no plan, but will not contract for safety. Patient is moved near nurses station for her safety so she can be closely monitored by staff.
[2020-06-02] MEDS: hyDROXYzine 25 mg Capsule 50 MG PO (09:35)
[2020-06-02] MEDS: acetaminophen 325 mg Tablet 650 MG PO (09:35)
--- NOTE | 2020-06-02 09:51 | PC.NURSE ---
PRN VISTARIL 50 MG GIVEN PO PER PT C/O STATED ANXIETY. PT VERY TEARFUL, CRYING IN THE RECLINER CHAIR BY THE NURSES STATION. PT OFFERED PRN MEDICATIONS, PT STATED I JUST DON'T WANT TO BE PUT TO SLEEP. STAFF EDUCATED THE BENEFIT OF TAKING PRN MEDS TO HELP WITH HER ANXIETY, PT AGREEABLE TO TAKE PRN VISTARIL. WILL CONT TO MONITOR FOR MED EFFECTIVENESS.
[2020-06-02 14:00] VITALS: BP 110/72; PULSE 72; RESP 18; TEMP 36.8; O2SAT 97
--- NOTE | 2020-06-02 14:17 | PC.RESP ---
Smoking Cessation information sent to patient.
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
[2020-06-02] MEDS: fluoxetine 10 mg Capsule PO (20:26)
--- NOTE | 2020-06-02 20:56 | P.PN_ITS ---
NPU Therapy Progress Note Therapy Progress Note Date: 06/02/20 Time In: 18:00 Time Out: 19:00 Symptoms Reported: depression, anxiety Mood: hopeless, self anger, sad Progress Note: Felicitas is resting in bed but is awake. She is friendly and open to speaking with SEMICONDUCTOR PROCESSING TECHNICIAN. She shares about events leading up to her admission and trauma hx. Felicitas has not sought mental health services for several reasons. She shares that she has feelings of failure as she has always been able to make it and part of her feels that seeking help would be failing. She is anxious about the response others would have should they find out. She is also fearful of focusing on difficult emotions she works very hard to forget. Felicitas describes herself as focusing her energy on taking care of others to keep from thinking about herself. She wonders why she struggles with having the care and compassion emotions that she should toward friends and loved ones and there is alot of self anger at not being able to do this adequately. She describes a good relationship with her biological parents now but also repressed anger towards them at having not met her needs as a child, therefore being the catalyst for much of her adult struggles with mental health. She has convinced herself her children would be better off without her, although towards the end of the conversation, in relating this to similar emotions of abandonment she has toward her parents, she realizes that thought is not true. Felicitas identifies the cycle of her trauma triggers, depression, and suicidality as torture . She is tearful throughout the conversation but shares openly and listens appropriately. Intervention: SEMICONDUCTOR PROCESSING TECHNICIAN provided empathetic listening and support. PTSD sx and treatment were discussed. ELDON educated about process of services at [facility] and possibility of [facility] funding to pay, as she is concerned for how much services would cost. Therapy process of treatment were discussed. She asks questions and responds with interest stating that she is very willing to follow up and receive outpatient services. She states i'm ready, i have to do something . Reported Goals Before Discharge: Follow up with [facility], possibly completing paperwork if she is able before discharge.
[2020-06-02 22:00] VITALS: BP 101/66; PULSE 56; RESP 17; TEMP 36.8; O2SAT 97
--- NOTE | 2020-06-03 04:43 | PC.NURSE ---
Pm assessment pt 25/ admitted last nite from ED. Pt called crisis line for help. She felt suicidal and thought she would relapse. Pt states, I had a rough day today on the unit. Another patient was going off all day and it made me anxious. Pt did have an extended visit with Crisis emergency department on the unit, pt states, I think I can follow thru with her and stick with my sobriety. Pt seems motivated to make necessary changes, she has been calm/cooperative with staff, reading a book in her room most of the night.
[2020-06-03 06:00] VITALS: BP 95/59; PULSE 72; RESP 15; TEMP 36.8; O2SAT 98
[2020-06-03] MEDS: fluoxetine 20 mg Capsule PO (08:39)
[2020-06-03 13:56] VITALS: BP 91/62; PULSE 84; RESP 17; TEMP 36.7; O2SAT 98
--- NOTE | 2020-06-03 17:37 | PM.NPN ---
Subjective NPU Subjective: Interval history: Rhea presents today reporting that things are going a little better. She identifies that she has made some bad choices and reports a plan to focus on doing things better. She reports that she is tolerating the medication without issue but has been higher. We discussed this is likely from the withdrawal. Otherwise she reports she is sleeping too much and eating okay. Mental Status Exam MSE Comments: This is an overweight versus obese white female with hospital scrubs on with adequate grooming and eye contact. No abnormal movements except for mild psychomotor retardation. Cooperative with exam in no acute distress. Speech was decreased rate and volume. Mood described as depressed, affect congruent. Thought process organized. Thought content: Patient denied homicidal or suicidal ideation, there were no delusions reported and decrease in paranoia noted, she denied auditory or visual hallucinations. Attention and concentration were intact and memory. Reliable but none were formally tested. She is alert and oriented x3. Insight and judgment are limited, but improving and control fair. Vitals/I&O/Wt Last Vital Signs Temp 98.1 F 06/03/20 13:56 Pulse 84 06/03/20 13:56 Resp 17 06/03/20 13:56 BP 91/62 06/03/20 13:56 Pulse Ox 98 06/03/20 13:56 Data NPU : 06/01/20 16:32 06/01/20 16:32 A&P Additional A&P Information (1) PTSD (post-traumatic stress disorder): (2) Cluster B personality disorder: (3) Depressive disorder: (4) Anxiety: (5) Cannabis abuse: Additional A&P Information This is a 25-year-old white female with a long history of mental health issues and trauma has been off of her medication for some time who presents open to restarting medication. 1. Continue current medication. 2. Continue every 15 minute checks for safety. 3. Encourage individual, group and milieu therapies. 4. Encourage sober living treatment after discharge at the highest level of care to which she is willing to commit. Involuntary Hold Information 96 Hour Hold: 96 Hour Involuntary Admission: No Attestations NPU Medical Necessity Statement*: Inpatient hospitalization is medically necessary and the clinically appropriate intervention at this time. We will monitor medications and make changes as indicated. Likely length of stay 1-4 days. Coding Level of Care Code Acute Train Electronic Technician for Mindy Hernandez
[2020-06-03 18:45] VITALS: BMI 31.6
[2020-06-03 20:34] VITALS: BP 141/71; PULSE 73; RESP 18; TEMP 36.7; O2SAT 97
[2020-06-03] MEDS: hyDROXYzine 25 mg Capsule 50 MG PO (22:03)
[2020-06-03] MEDS: trazodone 50 mg Tablet PO (22:03)
[2020-06-04 06:00] VITALS: BP 90/62; PULSE 55; RESP 15; TEMP 36.8; O2SAT 97; BMI 31.8
--- NOTE | 2020-06-04 06:07 | PC.NURSE ---
TRAZODONE/VISTERIL/ @ 2100 PT RECEIVED TRAZODONE 50MG PO, VISTERIL 50MG PO, TYLENOL 650MG PO GIVEN FOR INSOMNIA, ANXIETY, result sleep, reduction of anxiety, result, pt slept and experienced less anxiety. Initialized on 06/04/20 06:04 - END OF NOTE
--- NOTE | 2020-06-04 06:36 | PC.NURSE ---
Low B/P\ Pt reported low blood pressures for this patient, recorded in vital record, upon waking blood pressure normalized
--- NOTE | 2020-06-04 06:36 | PC.NURSE ---
Aid took patients BP four times 1st BP-75/50, 2nd- 76/49, 3rd- 74/42, 4th- 90/62.
[2020-06-04] MEDS: fluoxetine 20 mg Capsule PO (09:06)
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
[2020-06-04 14:55] VITALS: BP 90/62; PULSE 55; RESP 15; TEMP 36.8; O2SAT 97
== END 2020-06-04 15:18 | disposition home or self-care (01) | DRG 881 ==
LOC: ER 18:31 → NP 18:34
PROVIDERS: Physician Assistant; Admitting Provider Psychiatry & Neurology Psychiatry; Emergency Provider Family Medicine; Visit Provider Psychiatry & Neurology Psychiatry
DX: F32.9 Major depressive disorder, single episode, unspecified (principal); R45.851 Suicidal ideations; F15.90 Other stimulant use, unspecified, uncomplicated; F12.10 Cannabis abuse, uncomplicated; F43.10 Post-traumatic stress disorder, unspecified; F60.89 Other specific personality disorders; F41.9 Anxiety disorder, unspecified; Z59.0 Homelessness
CPT/HCPCS: 12345; 36415; 80053; 80306; 80307; 81001; 84703; 85025; 99284

== ENCOUNTER 2020-07-02 10:27 | Emergency (ER) | payer SELFPAY ==
[2020-07-02 10:35] VITALS: BP 117/66; PULSE 87; RESP 16; TEMP 36.2; O2SAT 96; BMI 30.9
[2020-07-02 10:42] VITALS: BP 117/66; RESP 20; O2SAT 99
--- NOTE | 2020-07-02 10:48 | W.ED.PREGNAN ---
HPI - General: Chief complaint: Vaginal Bleeding Stated complaint: Miscarriage Time Seen by Provider: 07/02/20 10:33 Source: patient Mode of arrival: ambulatory Limitations: no limitations History of Present Illness: HPI Narrative: 25-year-old female states she had a positive test 1 week ago states she is having bleeding today. States she passed a clot and has had heavy bleeding and believes she is having a miscarriage. 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 She had some abdominal cramping earlier but states she took Motrin and her pain is now gone. She denies any vomiting or diarrhea. Denies any worsening improving factors. Date of Last Menstrual Period: 05/11/20 Associated symptoms: Deny abdominal pain, headache(s), nausea or vomiting Review of Systems Const: Denies: fever(s), chills, body aches or change in appetite Eyes: Denies: blurry vision or eye discomfort ENMT: Denies: throat pain or dental pain Card: Denies: chest pain Resp: Denies: dyspnea GI: Denies: abdominal pain, nausea, vomiting or diarrhea : Reports: vaginal bleeding Musc: Denies: neck pain or back pain Skin/Breast: Denies: rash Neuro: Denies: headache(s) Psych: Denies: depression Fabiano/Lymph: Denies: easy bruising All/Imm: Denies: urticaria PFSH ED PFSH: Medical History (Reviewed 06/01/20 @ 19:38 by Jourdan Short MD, [facility]) Blood type A+ History of depression Surgical History (Reviewed 06/01/20 @ 19:38 by Jourdan Short MD, [facility]) H/O umbilical hernia repair (~2000) Performed in [place], [place] History of placement of ear tubes (~1999) Page 4 S/P ear surgery (~2008) Eardrum surgery. Performed in [place], [place] Family History (Reviewed 06/01/20 @ 19:38 by Jourdan Short MD, [facility] [place]) Mother Diabetes Stroke Hypertension Sister Diabetes Grandmother Diabetes Maternal Breast cancer Maternal Hypertension Maternal Family/Other Diabetes Maternal aunt Ovarian cancer Maternal great aunt, Maternal great grandmother Breast cancer Maternal aunt, Maternal great aunt Social History (Reviewed 06/01/20 @ 19:38 by Jourdan Short MD, [facility]) Smoking and tobacco status: current every day smoker cigarettes Alcohol intake: current Alcohol intake frequency: few times a month Other details last substance use: Marijuana Female Reproductive History: Date of last menstrual period: 05/11/20 Physical Exam Const: COMMON NORMALS: no acute distress, patient oriented x3 and healthy appearing HENMT: COMMON NORMALS: normocephalic and atraumatic HEAD & SCALP: normocephalic and atraumatic Eye: COMMON NORMALS: Equal, round and reactive pupils present and EOMs intact bilaterally PUPIL: Yes Equal, round and reactive pupils present Neck/C-Spine: COMMON NORMALS: full ROM and supple Chest: COMMONS NORMALS: normal inspection of the chest and normal palpation of entire chest wall Resp: COMMON NORMALS: normal respiratory effort, No retractions, No use of accessory muscles and clear to auscultation bilaterally AUSCULTATION: clear to auscultation bilaterally Cardio: COMMON NORMALS: regular rate, regular rhythm and No murmurs present (Cardio) RATE: regular rate RHYTHM: regular rhythm GI: COMMON NORMALS: Normal to inspection, nondistended, normoactive bowel sounds present, Soft to palpation, non-tender and no masses PALPATION: Yes Soft to palpation Extremity: COMMON NORMALS: normal to inspection and full ROM Neuro: COMMON NORMALS: patient oriented x3, moves all extremities and no focal motor deficits Psych: COMMON NORMALS: mental status grossly normal, Normal thought process present and cooperative THOUGHT PROCESS: Normal thought process present Skin: COMMON NORMALS: no rashes or lesions noted and no wounds GENERAL SKIN EXAM: no rashes or lesions noted Course Vital Signs: Vital signs: Vital Signs Temperature 97.2 F L 07/02/20 10:35 Pulse Rate 73 07/02/20 10:59 Respiratory Rate 18 07/02/20 10:59 Blood Pressure 117/66 07/02/20 10:59 Pulse Oximetry 100 07/02/20 10:59 MDM - OB/Uterine Contractions MDM Narrative: Medical decision making narrative: Felicitas presents here with vaginal bleeding and was concerned that she may be . Her blood test here is negative. She is well-appearing here and hemoglobin is normal as well. She is stable for discharge and is to follow-up with OB and return if worsening. Lab Data: Labs: Lab Results 07/02/20 07/02/20 Range/Units 10:54 10:54 WBC 8.4 (4.0-10.0) 10^3/ uL RBC 4.52 (4.1-5.3) 10^6/u L Hgb 12.6 (11.5-15.3) g/dL Hct 39.2 (37.0-47.0) % MCV 86.7 (81-99) fL MCH 27.9 L (28.0-34.0) pg MCHC 32.1 (30.0-36.0) g/dL RDW 14.2 (12.1-15.1) % Plt Count 341 (130-400) 10^3/c mm MPV 9.1 (7.4-10.4) fL Neut % (Auto) 66.4 % Lymph % (Auto) 25.0 % Barnes % (Auto) 6.5 % Eos % (Auto) 1.1 % Baso % (Auto) 0.6 % Neut # (Auto) 5.58 (1.8-7.7) 10^3/u L Lymph # (Auto) 2.1 (0.8-4.8) 10^3/u L Barnes # (Auto) 0.6 (0.2-0.9) 10^3/u L Eos # (Auto) 0.1 (0.0-0.8) 10^3/u L Baso # (Auto) 0.1 (0.0-0.1) 10^3/u L Nucleated RBC % (a uto) 0 % Nucleated RBCs # 0.0 /100WBC Ser , Yusuf i-Qnt 0.73 mIU/mL Discharge Plan Discharge Patient Disposition: Home Clinical Impression: Vaginal bleeding Condition: Stable Prescriptions: No Action ibuprofen 200 mg Tablet 400 mg PO PRN RF: 0 Valium 10 mg Tablet 10 mg PO ONCE RF: 0 1 cap PO DAILY RF: 0 trazodone 50 mg Tablet 50 mg PO BEDTIME PRN (Reason: Sleep) 30 Days Qty: 30 RF: 1 Discharge Orders: Discharge ED (Routine); Ordered 07/02/20 Ordered By: David Dumont Discharge Diet: Advance as tolerated Discharge Activity: Resume usual activity Patient Instructions: Menstruation (ED) Coding Level of Care Code ED Sanitary Landfill Operator for [facility] Fwd Exam Comprehensive
[2020-07-02 10:59] VITALS: BP 117/66; PULSE 73; RESP 18; O2SAT 100
[2020-07-02 11:05] LABS: Basophils # 0.1 10^3/uL (0.0-0.1); Basophils % 0.6 %; Eosinophils # 0.1 10^3/uL (0.0-0.8); Eosinophils % 1.1 %; Hematocrit 39.2 % (37.0-47.0); Hemoglobin 12.6 g/dL (11.5-15.3); Lymphocytes # 2.1 10^3/uL (0.8-4.8); Mean Corpuscular HGB Conc 32.1 g/dL (30.0-36.0); Mean Corpuscular Hemoglobin 27.9 pg (28.0-34.0); Mean Corpuscular Volume 86.7 fL (81-99); Mean Platelet Volume 9.1 fL (7.4-10.4); Monocytes # 0.6 10^3/uL (0.2-0.9); Monocytes % 6.5 %; Neutrophils # 5.58 10^3/uL (1.8-7.7); Neutrophils % 66.4 %; Nucleated Red Blood Cells % 0 %; Platelet Count 341 10^3/cmm (130-400); Red Blood Count 4.52 10^6/uL (4.1-5.3); Red Cell Distribution Width 14.2 % (12.1-15.1); White Blood Count 8.4 10^3/uL (4.0-10.0)
[2020-07-02 11:55] LABS: HCG Quantitative 0.73 mIU/mL
[2020-07-02 12:33] VITALS: BP 96/74; PULSE 86; RESP 17; TEMP 37.2; O2SAT 97
--- NOTE | 2020-07-03 14:25 | DCPLANNER ---
site operations manager had message to schedule a follow up appointment for patient with [facility]. site operations manager called [facility], spoke with Ariadna, gave clinic patients information. site operations manager was told that patients information would be printed and reviewed. Clinic will call patient with appointment information.
--- NOTE | 2020-07-19 13:30 | DCPLANNER ---
retail branch manager called the [facility], spoke with Maribel to confirm that a followup appointment had been scheduled for patient. retail branch manager was told that when clinic called patient, that patient declined appointment at this time.
== END 2020-07-02 12:36 | disposition home or self-care (01) ==
PROVIDERS: Emergency Provider Emergency Medicine
DX: N93.9 Abnormal uterine and vaginal bleeding, unspecified (principal); F17.210 Nicotine dependence, cigarettes, uncomplicated
CPT/HCPCS: 84702; 85025; 99282

== ENCOUNTER 2020-09-23 21:30 | Emergency (ER) | payer MEDICAID, SELFPAY ==
[2020-09-23 21:39] VITALS: BP 97/61; PULSE 72; RESP 18; TEMP 36.2; O2SAT 99; BMI 33.3
--- NOTE | 2020-09-23 21:42 | XRR_ITS ---
PROCEDURE INFORMATION: Exam: XR Chest Exam date and time: 09/23/2020 10:07 PM Age: 25 years old Clinical indication: Cough TECHNIQUE: Imaging protocol: XR of the chest. Views: 1 view. COMPARISON: No relevant prior studies available. FINDINGS: Lungs: No CHF/pulmonary edema. Visible lungs appear essentially clear. Pleural spaces: No visible pneumothorax. No definite pleural fluid. Heart/Mediastinum: Heart size is within normal limits. Bones/joints: No significant acute finding. XR/XR chest 1V portable [id number] IMPRESSION: 1. Essentially unremarkable single view chest. 2. Other findings discussed above.
[2020-09-23 21:46] VITALS: O2SAT 96
--- NOTE | 2020-09-23 21:51 | W.ED.COVID ---
HPI - COVID General: Chief Complaint: COVID symptoms Stated Complaint: Fever\Loss of Smell\No Taste\Cough Time Seen by Provider: 09/23/20 21:33 Source: patient Mode of arrival: ambulatory Limitations: no limitations Triage information: Has fever, cough or shortness of breath. Exposure to COVID + person last 14 days History of Present Illness: HPI Narrative: Patient is a 25-year-old female who is currently in her first trimester of who presents to the emergency department with a 3-day history of cough loss of taste loss of smell as well as a fever. She also has some shortness of breath. About 7 to 10 days ago she was exposed to people that were positive for COVID-19. She has not had her vaccination and she has not had an infection that she knows of. MD complaint: reported COVID exposure and has COVID symptoms Prior covid testing: no COVID 19 common symptoms: positive fever(s), chills, cough, productive cough, dyspnea, fatigue, body aches, loss of sense of smell and/or taste and nasal congestion Onset (ago): day(s) (3) Severity: moderate Treatment prior to arrival: ibuprofen COVID Results: SARS-CoV-2 Antigen (Rapid) Negative (Negative) 09/23/20 21:59 09/23/20 SARS-CoV-2 RNA (RT-PCR) Pending 09/23/20 21:54 09/23/20 Review of Systems General: Reports: 10 or more systems reviewed and unremarkable except in HPI and below Const: Reports: fever(s), chills, body aches and fatigue ENMT: Reports: nasal congestion Resp: Reports: dyspnea and productive cough PFS ED PFSH: Medical History Blood type A+ History of depression Surgical History H/O umbilical hernia repair (~2000) Performed in [place], [place] History of placement of ear tubes (~1999) Page 4 S/P ear surgery (~2008) Eardrum surgery. Performed in [place], [place] Family History Mother Diabetes Stroke Hypertension Sister Diabetes Grandmother Diabetes Maternal Breast cancer Maternal Hypertension Maternal Family/Other Diabetes Maternal aunt Ovarian cancer Maternal great aunt, Maternal great grandmother Breast cancer Maternal aunt, Maternal great aunt Social History Smoking and tobacco status: current every day smoker cigarettes Alcohol intake: current Alcohol intake frequency: few times a month Other details last substance use: Marijuana Female Reproductive History: Date of last menstrual period: 05/11/20 Physical Exam Const: COMMON NORMALS: no acute distress, average body habitus, patient oriented x3, no limitations, healthy appearing, alert and well nourished HENMT: COMMON NORMALS: normocephalic, atraumatic and moist oral mucous membranes HEAD & SCALP: normocephalic and atraumatic Neck/C-Spine: COMMON NORMALS: no meningeal signs and no JVD Resp: COMMON NORMALS: normal respiratory effort, No retractions, No use of accessory muscles, clear to auscultation bilaterally and percussion normal AUSCULTATION: clear to auscultation bilaterally PERCUSSION: percussion normal Cardio: COMMON NORMALS: no JVD, regular rate, regular rhythm, S1 normal heart sound present, S2 normal heart sound present, No gallops present (Cardio), No clicks present (Cardio), No murmurs present (Cardio), No rub (Cardio) and Peripheral pulses 2+ throughout RATE: regular rate RHYTHM: regular rhythm HEART SOUNDS: S1 normal heart sound present and S2 normal heart sound present PERIPHERAL PULSES: Peripheral pulses 2+ throughout GI: COMMON NORMALS: Normal to inspection, nondistended, normoactive bowel sounds present, Soft to palpation, non-tender, No hepatosplenomegaly present, no masses and no bruits PALPATION: Yes Soft to palpation and Yes No hepatosplenomegaly present Extremity: COMMON NORMALS: normal to inspection, full ROM, capillary refill normal, no calf tenderness and no pedal edema Neuro: COMMON NORMALS: patient oriented x3 SENSORIUM/ORIENTATION: Yes alert MENINGEAL SIGNS: Yes no meningeal signs Skin: COMMON NORMALS: no rashes or lesions noted, no wounds, turgor normal, no jaundice, no petechiae and no mottling GENERAL SKIN EXAM: no rashes or lesions noted and turgor normal Course Reevaluation(s): Reevaluation #1: Discussed her lab and imaging findings with her. Her rapid Covid test is negative. Chest x-ray unremarkable. Lab work also generally unremarkable although she has elevated CRP and fibrinogen levels. Advised her to self quarantine for 10 to 14 days from symptom onset and she will be contacted with the report of her PCR Covid test. She is to take Tylenol or ibuprofen as needed for pain or fever. She should follow-up with her primary care provider via telemedicine. She voiced understanding and is in agreement with the plan. Time: 22:50 Vital Signs: Vital signs: Vital Signs Temperature 98.4 F 09/23/20 22:33 Pulse Rate 76 09/23/20 22:33 Respiratory Rate 16 09/23/20 22:33 Blood Pressure 97/76 09/23/20 22:33 Pulse Oximetry 97 09/23/20 22:33 MDM - COVID MDM Narrative: Medical decision making narrative: 35-year-old female patient who was recently exposed to COVID-19. This happened about 7 to 10 days ago. 3 days ago she developed symptoms of cough, fever, shortness of breath, loss of taste and smell. Rapid Covid test was negative, PCR test has been sent. She is advised to self quarantine for 7 to 10 days. She is clinically stable and not requiring any treatment at this time. Medical Records: Attestation: I reviewed the patient's medical records. Lab Data: Attestation: I reviewed the patient's lab results. Labs: Lab Results 09/23/20 09/23/20 09/23/20 Range/Units 20:02 20:02 20:02 WBC 10.3 H (4.0-10.0) 10^3/ uL RBC 4.71 (4.1-5.3) 10^6/u L Hgb 13.6 (11.5-15.3) g/dL Hct 41.8 (37.0-47.0) % MCV 88.7 (81-99) fL MCH 28.9 (28.0-34.0) pg MCHC 32.5 (30.0-36.0) g/dL RDW 13.7 (12.1-15.1) % Plt Count 318 (130-400) 10^3/c mm MPV 9.5 (7.4-10.4) fL Neut % (Auto) 68.2 % Lymph % (Auto) 19.3 % Towns % (Auto) 8.1 % Eos % (Auto) 3.2 % Baso % (Auto) 0.6 % Neut # (Auto) 7.03 (1.8-7.7) 10^3/u L Lymph # (Auto) 2.0 (0.8-4.8) 10^3/u L Towns # (Auto) 0.8 (0.2-0.9) 10^3/u L Eos # (Auto) 0.3 (0.0-0.8) 10^3/u L Baso # (Auto) 0.1 (0.0-0.1) 10^3/u L Nucleated RBC % (a uto) 0 % Nucleated RBCs # 0.0 /100WBC Fibrinogen 524 H (174-498) mg/dL D-Dimer 0.40 (0-0.59) ug/mIFE U Sodium 138 (136-145) mmol/L Potassium 4.0 (3.5-5.1) mmol/L Chloride 102 (98-107) mmol/L Carbon Dioxide 23 (22-29) mmol/L Anion Gap 17.0 (5-19) BUN 7 (6-20) mg/dL Creatinine 0.6 (0.5-0.9) mg/dL GFR Calculation 121.8 (90-130) mL/min Glucose 88 (65-115) mg/dL Calculated Osmolal ity 283 L (285-295) mOsm/k g Calcium 8.7 (8.5-10.5) mg/dL Total Bilirubin 0.3 (0.15-1.2) mg/dL AST 16 (0-32) U/L ALT 11 (0-33) U/L Alkaline Phosphata se 70 (35-105) IU/L C-Reactive Protein 44.3 H (0.0-4.9) mg/L Total Protein 6.7 (6.6-8.7) g/dL Albumin 3.9 (3.5-5.2) g/dL Globulin 2.8 (1.3-4.6) g/dL SARS-CoV-2 Ag (Rap id) (Negative) 09/23/20 Range/Units 21:59 WBC (4.0-10.0) 10^3/ uL RBC (4.1-5.3) 10^6/u L Hgb (11.5-15.3) g/dL Hct (37.0-47.0) % MCV (81-99) fL MCH (28.0-34.0) pg MCHC (30.0-36.0) g/dL RDW (12.1-15.1) % Plt Count (130-400) 10^3/c mm MPV (7.4-10.4) fL Neut % (Auto) % Lymph % (Auto) % Towns % (Auto) % Eos % (Auto) % Baso % (Auto) % Neut # (Auto) (1.8-7.7) 10^3/u L Lymph # (Auto) (0.8-4.8) 10^3/u L Towns # (Auto) (0.2-0.9) 10^3/u L Eos # (Auto) (0.0-0.8) 10^3/u L Baso # (Auto) (0.0-0.1) 10^3/u L Nucleated RBC % (a uto) % Nucleated RBCs # /100WBC Fibrinogen (174-498) mg/dL D-Dimer (0-0.59) ug/mIFE U Sodium (136-145) mmol/L Potassium (3.5-5.1) mmol/L Chloride (98-107) mmol/L Carbon Dioxide (22-29) mmol/L Anion Gap (5-19) BUN (6-20) mg/dL Creatinine (0.5-0.9) mg/dL GFR Calculation (90-130) mL/min Glucose (65-115) mg/dL Calculated Osmolal ity (285-295) mOsm/k g Calcium (8.5-10.5) mg/dL Total Bilirubin (0.15-1.2) mg/dL AST (0-32) U/L ALT (0-33) U/L Alkaline Phosphata se (35-105) IU/L C-Reactive Protein (0.0-4.9) mg/L Total Protein (6.6-8.7) g/dL Albumin (3.5-5.2) g/dL Globulin (1.3-4.6) g/dL SARS-CoV-2 Ag (Rap id) Negative (Negative) Imaging Data: CXR: Attestation: I personally reviewed and interpreted this imaging study as follows: Radiologist's impression: [id number] [place], [place] [address]SIvj ReportSigned Patient: Felicitas Cuevas LUnfrances #: [id number]: [id number]#:[id number]/Sex: 25 / FADM Date: 09/23/20Loc: ERRoom/Bed:Attending Dr: Ordering Provider/Ordering MD: Jourdan Short MD, [facility] [place] Date of Service: 09/23/20 Procedure(s): XR chest 1V portable [id number] Accession Number(s): [id number] Report Number: [id number] PROCEDURE INFORMATION: Exam: XR Chest Exam date and time: 09/23/2020 10:07 PM Age: 25 years old Clinical indication: Cough TECHNIQUE: Imaging protocol: XR of the chest. Views: 1 view. COMPARISON: No relevant prior studies available. FINDINGS: Lungs: No CHF/pulmonary edema. Visible lungs appear essentially clear. Pleural spaces: No visible pneumothorax. No definite pleural fluid. Heart/Mediastinum: Heart size is within normal limits. Bones/joints: No significant acute finding. XR/XR chest 1V portable [id number] IMPRESSION: 1. Essentially unremarkable single view chest. 2. Other findings discussed above. Dictated By:Frank Ho MDSigned By:Frank Ho MDSigned Date/Time:09/23/202239DD/ 37 COVID Results: SARS-CoV-2 Antigen (Rapid) Negative (Negative) 09/23/20 21:59 09/23/20 SARS-CoV-2 RNA (RT-PCR) Pending 09/23/20 21:54 09/23/20 Discharge Plan Discharge Patient Disposition: Home Clinical Impression: Viral URI, Close exposure to severe acute respiratory syndrome coronavirus 2 (SARS-CoV-2) Condition: Stable Prescriptions: Continued ibuprofen 200 mg Tablet 400 mg PO PRN RF: 0 Valium 10 mg Tablet 10 mg PO ONCE RF: 0 1 cap PO DAILY RF: 0 trazodone 50 mg Tablet 50 mg PO BEDTIME PRN (Reason: Sleep) 30 Days Qty: 30 RF: 1 Discharge Orders: Discharge ED (Routine); Ordered 09/23/20 Ordered By: Jourdan Short Discharge Diet: Usual diet Discharge Activity: Limit activity as instructed Patient Instructions: Upper Respiratory Infection (ED), Viral Syndrome (ED) Activity Restrictions/Additional Instructions: Return for any new or worsening symptoms. Follow-up with your primary care provider within 3 days, probably by telemedicine. You need to self quarantine for 10 to 14 days from when your symptoms started. You will be contacted with results of your PCR Covid test. Coding Level of Care Code ED Injection Molding Technician for Mindy Fwd Exam Comprehensive
[2020-09-23 22:13] LABS: Basophils # 0.1 10^3/uL (0.0-0.1); Basophils % 0.6 %; Eosinophils # 0.3 10^3/uL (0.0-0.8); Eosinophils % 3.2 %; Hematocrit 41.8 % (37.0-47.0); Hemoglobin 13.6 g/dL (11.5-15.3); Lymphocytes % 19.3 %; Mean Corpuscular HGB Conc 32.5 g/dL (30.0-36.0); Mean Corpuscular Hemoglobin 28.9 pg (28.0-34.0); Mean Corpuscular Volume 88.7 fL (81-99); Mean Platelet Volume 9.5 fL (7.4-10.4); Monocytes # 0.8 10^3/uL (0.2-0.9); Monocytes % 8.1 %; Neutrophils # 7.03 10^3/uL (1.8-7.7); Neutrophils % 68.2 %; Nucleated Red Blood Cells % 0 %; Platelet Count 318 10^3/cmm (130-400); Red Blood Count 4.71 10^6/uL (4.1-5.3); Red Cell Distribution Width 13.7 % (12.1-15.1); White Blood Count 10.3 10^3/uL (4.0-10.0)
[2020-09-23 22:33] VITALS: BP 97/76; PULSE 76; RESP 16; TEMP 36.9; O2SAT 97
[2020-09-23 22:33] LABS: Alanine Aminotransferase 11 U/L (0-33); Albumin Level 3.9 g/dL (3.5-5.2); Alkaline Phosphatase 70 IU/L (35-105); Aspartate Amino Transferase 16 U/L (0-32); Blood Urea Nitrogen 7 mg/dL (6-20); C Reactive Protein 44.3 mg/L (0.0-4.9); Calcium 8.7 mg/dL (8.5-10.5); Carbon Dioxide 23 mmol/L (22-29); Chloride 102 mmol/L (98-107); Globulin 2.8 g/dL (1.3-4.6); Glomerular Filtration Rate 121.8 mL/min (90-130); Glucose 88 mg/dL (65-115); Osmolality Calculated 283 mOsm/kg (285-295); Sodium 138 mmol/L (136-145); Total Bilirubin 0.3 mg/dL (0.15-1.2); Total Protein 6.7 g/dL (6.6-8.7)
[2020-09-23 22:35] LABS: Fibrinogen 524 mg/dL (174-498)
[2020-09-23 22:42] LABS: SARS Covid-2 Antigen Negative (Negative)
[2020-09-25 11:12] LABS: Quest SARS-CoV-2 RNA NOT DETECTED (NOT DETECTED)
--- NOTE | 2020-09-25 16:39 | PC.NURSE ---
patient notified of negative covid-19 at this time
== END 2020-09-23 23:13 | disposition home or self-care (01) ==
PROVIDERS: Emergency Provider Family Medicine
DX: O99.511 Diseases of the respiratory system complicating pregnancy, first trimester (principal); J06.9 Acute upper respiratory infection, unspecified; B97.89 Other viral agents as the cause of diseases classified elsewhere; O99.331 Smoking (tobacco) complicating pregnancy, first trimester; F17.210 Nicotine dependence, cigarettes, uncomplicated; Z3A.00 Weeks of gestation of pregnancy not specified; Z20.822 Contact with and (suspected) exposure to COVID-19
CPT/HCPCS: 71045; 80053; 85025; 85378; 85384; 86140; 87426; 87635; 99283

== ENCOUNTER 2021-02-07 21:25 | Outpatient (CLI) | payer MEDICAID, SELFPAY ==
[2021-02-07 21:25] VITALS: BMI 34.3
[2021-02-07 21:33] VITALS: BP 108/63; PULSE 90; TEMP 36.8
[2021-02-07 21:42] VITALS: TEMP 37.1
[2021-02-07 22:12] LABS: Add Urine Culture? No; Bacteria Urine 1+ /hpf; Bilirubin Urine Neg (Negative); Blood Urine Neg (Negative); Glucose Urine UA Norm (Normal); Ketones Urine Negative (Negative); Leukocyte Esterase Urine Negative (Negative); Mucus Urine 3+ /hpf; Nitrate Urine Negative (Negative); Protein Urine Neg (Negative); RBC Urine 0-4 /hpf (0-2); Urine Appearance Clear (CLEAR); Urine Color Yellow (Yellow); Urobilinogen Urine 1 mg/dL (Negative); WBC Urine 0-4 /hpf (0-5); pH Urine 5 (5-7)
[2021-02-07 22:39] VITALS: BP 105/62; PULSE 80; TEMP 36.8
[2021-02-07 22:50] VITALS: RESP 16
[2021-02-07 22:54] VITALS: BP 105/62; PULSE 80; RESP 16; TEMP 36.8
== END 2021-02-07 22:54 | disposition home or self-care (01) ==
LOC: OPOB 21:27 → OBGYN 21:28
PROVIDERS: Visit Provider Family Medicine
DX: O26.899 Other specified pregnancy related conditions, unspecified trimester (principal); Z3A.00 Weeks of gestation of pregnancy not specified; R10.9 Unspecified abdominal pain; Z91.81 History of falling
CPT/HCPCS: 81001; 99211

== ENCOUNTER 2021-03-15 13:30 | Outpatient (CLI) | payer MEDICAID, SELFPAY ==
[2021-03-15 13:56] VITALS: BP 108/58; PULSE 99
[2021-03-15 14:16] VITALS: BP 94/56; PULSE 98
[2021-03-15 14:36] VITALS: BP 95/55; PULSE 85
[2021-03-15 14:39] LABS: Bilirubin Urine Neg (Negative); Blood Urine Neg (Negative); Glucose Urine UA Norm (Normal); Ketones Urine Negative (Negative); Leukocyte Esterase Urine Negative (Negative); Nitrate Urine Negative (Negative); Protein Urine Neg (Negative); Specific Gravity, Urine 1.015 (1.005-1.030); Urine Appearance Cloudy (CLEAR); Urine Color Yellow (Yellow); Urobilinogen Urine Norm (Negative); pH Urine 7 (5-7)
[2021-03-15 14:40] LABS: Bacteria Urine 1+ /hpf; Mucus Urine 1+ /hpf; Squamous Epithelial Cell Urine 25-40 /hpf (0-5); WBC Urine 0-4 /hpf (0-5)
== END 2021-03-15 14:57 | disposition home or self-care (01) ==
LOC: OPOB 13:35 → OBGYN 13:43
PROVIDERS: Visit Provider Family Medicine
DX: O99.891 Other specified diseases and conditions complicating pregnancy (principal); M54.9 Dorsalgia, unspecified; Z3A.00 Weeks of gestation of pregnancy not specified
CPT/HCPCS: 59025; 81001; 99211

== ENCOUNTER 2021-05-02 23:15 | Outpatient (CLI) | payer MEDICAID, SELFPAY ==
[2021-05-02 23:31] VITALS: BP 99/63; PULSE 94
[2021-05-02 23:38] VITALS: TEMP 36.6
[2021-05-02 23:43] VITALS: RESP 15
[2021-05-02 23:45] VITALS: BP 95/66; PULSE 80
[2021-05-03 00:02] VITALS: BMI 35.9
[2021-05-03 00:03] VITALS: BP 99/63; PULSE 83
[2021-05-03] MEDS: magnesium hydroxide 30 mL UDC PO (00:06)
[2021-05-03 00:15] VITALS: BP 93/54; PULSE 75
[2021-05-03 00:31] VITALS: BP 90/52; PULSE 68
[2021-05-03 00:45] VITALS: BP 96/58; PULSE 67
[2021-05-03 00:56] VITALS: TEMP 36.3
[2021-05-03 01:15] VITALS: BP 96/58; PULSE 67; RESP 15; TEMP 36.3
== END 2021-05-03 01:15 | disposition home or self-care (01) ==
LOC: OPOB 23:20 → OBGYN 23:22
PROVIDERS: Visit Provider Family Medicine
DX: O26.899 Other specified pregnancy related conditions, unspecified trimester (principal); Z3A.00 Weeks of gestation of pregnancy not specified; R10.9 Unspecified abdominal pain
CPT/HCPCS: 59025; 99211

== ENCOUNTER 2021-05-08 07:45 | Outpatient (CLI) | payer MEDICAID, SELFPAY ==
[2021-05-08 08:17] VITALS: BP 98/60; PULSE 88
[2021-05-08 08:51] VITALS: BP 107/65; PULSE 90
[2021-05-08 09:22] LABS: Basophils # 0.1 10^3/uL (0.0-0.1); Basophils % 0.5 %; Eosinophils # 0.2 10^3/uL (0.0-0.8); Eosinophils % 1.9 %; Hematocrit 34.1 % (37.0-47.0); Hemoglobin 10.9 g/dL (11.5-15.3); Lymphocytes # 2.3 10^3/uL (0.8-4.8); Lymphocytes % 24.4 %; Mean Corpuscular Hemoglobin 25.8 pg (28.0-34.0); Mean Corpuscular Volume 80.6 fl (81-99); Mean Platelet Volume 11.1 fL (7.4-10.4); Monocytes # 0.6 10^3/uL (0.2-0.9); Monocytes % 6.1 %; Neutrophils # 6.24 10^3/uL (1.8-7.7); Neutrophils % 66.1 %; Nucleated Red Blood Cells % 0 %; Platelet Count 286 10^3/cmm (130-400); Red Blood Count 4.23 10^6/uL (4.1-5.3); White Blood Count 9.4 10^3/uL (4.0-10.0)
== END 2021-05-08 07:59 | disposition home or self-care (01) ==
LOC: OPOB 07:49 → OBGYN 07:51 → OPOB 08:06 → OBGYN 10:50
PROVIDERS: Visit Provider Family Medicine
DX: O61.9 Failed induction of labor, unspecified (principal); Z3A.00 Weeks of gestation of pregnancy not specified
CPT/HCPCS: 36415; 59025; 85025; 99211

== ENCOUNTER 2021-05-09 10:25 | Inpatient (IN) | payer MEDICAID, SELFPAY ==
[2021-05-09] VITALS (31 sets, daily range): BP systolic 87–118; BP diastolic 48–74; PULSE 50–102; RESP 16–22; TEMP 36.1–36.9; O2SAT 98–100; BMI 35.7
--- NOTE | 2021-05-09 09:40 | PC.NURSE ---
This nurse in room to complete the triage assessment at this time. Patient was visibly upset and she stated, I'm pissed. I want this baby out now. I have been hurting since I was sent home yesterday. I introduced myself and told her that I could tell she was upset. i told her that we were going to assess her and we were going to take very good care of her. She slightly calmed down after this conversation.
[2021-05-09] MEDS: miSOPROStol 100 mcg tablet 25 MCG VAGINAL (11:33)
[2021-05-09 11:57] LABS: Basophils # 0.1 10^3/uL (0.0-0.1); Basophils % 0.6 %; Eosinophils # 0.1 10^3/uL (0.0-0.8); Eosinophils % 0.9 %; Hematocrit 34.9 % (37.0-47.0); Hemoglobin 11.1 g/dL (11.5-15.3); Lymphocytes # 2.2 10^3/uL (0.8-4.8); Lymphocytes % 23.1 %; Mean Corpuscular HGB Conc 31.8 g/dL (30.0-36.0); Mean Corpuscular Hemoglobin 25.9 pg (28.0-34.0); Mean Corpuscular Volume 81.4 fl (81-99); Mean Platelet Volume 10.9 fL (7.4-10.4); Monocytes # 0.6 10^3/uL (0.2-0.9); Monocytes % 6.1 %; Neutrophils # 6.54 10^3/uL (1.8-7.7); Nucleated Red Blood Cells % 0 %; Platelet Count 277 10^3/cmm (130-400); Red Blood Count 4.29 10^6/uL (4.1-5.3); Red Cell Distribution Width 14.9 % (12.1-15.1); White Blood Count 9.6 10^3/uL (4.0-10.0)
--- NOTE | 2021-05-09 14:19 | PC.NURSE ---
[id number] While completing assessment, patient was visibly upset and crying and holding her head. She stated that she had thoughts of ways she could get the baby out of her. She stated that she just wants this baby cut out. She stated that she was having suicidal thoughts but didn't have a plan. Suicidal precautions immediately started and this nurse stayed with her until a 1:1 sitter was in the room.
[2021-05-09 16:03] LABS: Amphetamines Screen Urine Negative (Negative); Barbiturates Screen Urine Negative (Negative); Benzodiazepines Screen Urine Negative (Negative); Cocaine Screen Urine Negative (Negative); Opiate Screen Urine Negative (Negative); PCP Screen Urine Negative (Negative); THC Screen Urine Negative (Negative)
--- NOTE | 2021-05-09 17:46 | PM.OPHPUD ---
Labor & Delivery H&P Update Date of Procedure: May 09, 2021 Date H&P Performed: 05/07/21 H&P update information: I have reviewed H&P completed within last 30 days, I have examined patient prior to procedure and Changes to prior documentation as noted here (Patient is now carol and having discomfort.She also made some statements to the nurse on admission which prompted a psychiatric referral.) Admission Diagnosis: Preop diagnosis: Term Primary indication for procedure: Term admitted for induction. Planned procedure: Induction for labor and delivery and delivery of a baby vaginally. Other information: Dr. Sahni was consulted for psychiatric evaluation.
--- NOTE | 2021-05-09 17:53 | W.PM.PSYCONS ---
Providers/Reason for Consult Consulting Physican/Specialty*: Jarrett Sahni MD. Psychiatry. Reason for Consult*: Evaluate for safety. Attending Physician: Shaun Vaughan MD Psych Consult HPI History of Present Illness Felicitas Cuevas is a 26 year old female who is a few days past her due date and presented today after being discharged yesterday when her plan for possible induction did not materialize. He was discharged home and reports that she did not sleep much if at all. She returned today and during the initial assessment she made some comments suggestive that she might hurt herself or the baby. A psychiatric consult was requested to assess for medical stability and lethality. Patient is known to this health technical writer through previous encounter. We discussed factors related to her stress. We reviewed her supports including her aunt and a neighbor. We identified she has done fairly well without her medication, but the last few days with expectation for delivery have been difficult. The importance of restarting medication was delivery and possibly nursing is done. We reviewed her current situation including living with her to children and she did not eat significant changes since our last encounter. Meds Current Medications: Current Medications Generic Name Dose Route Start Last Admin Trade Name Freq PRN Reason Stop Dose Admin Dextrose/Lactated Ringer's 1,000 mls @ 125 m ls/hr 05/09/21 11:00 05/10/21 01:10 Dextrose 5%-Lact ated Ringers IV 125 mls/hr .Q8H AURA Administration Lactated Ringer's 1,000 mls @ 999 m ls/hr 05/09/21 23:01 05/09/21 23:10 Lactated Ringers IV 999 mls/hr .Q1H1M PRN Administration See label comment s PFSH NPU PFSH: Medical History (Reviewed 09/23/20 @ 22:40 by Jourdan Short MD, [facility] [place]) Blood type A+ History of depression Surgical History (Reviewed 09/23/20 @ 22:40 by Jourdan Short MD, [facility] [place]) H/O umbilical hernia repair (~2000) Performed in [place], [place] History of placement of ear tubes (~1999) Page 4 S/P ear surgery (~2008) Eardrum surgery. Performed in [place], [place] Family History (Reviewed 09/23/20 @ 22:40 by Jourdan Short MD, [facility] [place]) Mother Diabetes Stroke Hypertension Sister Diabetes Grandmother Diabetes Maternal Breast cancer Maternal Hypertension Maternal Family/Other Diabetes Maternal aunt Ovarian cancer Maternal great aunt, Maternal great grandmother Breast cancer Maternal aunt, Maternal great aunt Social History (Reviewed 09/23/20 @ 22:40 by Jourdan Short MD, [facility] [place]) Smoking and tobacco status: current every day smoker cigarettes Alcohol intake: current Alcohol intake frequency: few times a month Other details last substance use: Marijuana Female Reproductive History: : 3 Mental Status Exam MSE Comments: This is an overweight clearly gravid white female with hospital gown with adequate grooming and eye contact. No abnormal movements except for pauses during contractions. Cooperative with exam in mild to moderate intermittent distress. Speech was normal rate and volume. Mood described as better than earlier, affect congruent. Thought process organized. Thought content: Patient denied homicidal or suicidal ideation, he denied any thoughts to hurt herself or the baby or any of her children there were no delusions reported and decrease in paranoia noted, she denied auditory or visual hallucinations. Attention and concentration were intact and memory was reliable but none were formally tested. She is alert and oriented x3. Insight and judgment are fair and impulse control fair. Vitals/I&O/Wt Last Vital Signs Temp 98.4 F 05/09/21 19:57 Pulse 82 05/09/21 19:57 Resp 16 05/09/21 16:33 BP 95/60 05/09/21 19:57 Pulse Ox Weight last 48 hrs Weight 91.626 kg Physical Exam Urinary Catheter Management^: Bob: Cath Placed During This Visit: yes Urinary Catheter Date of Insertion: 05/10/21 Urinary Catheter Time of Insertion: 01:25 A&P Assessment and plan (1) Cannabis abuse: Status: Acute (2) Anxiety: Status: Acute (3) Depressive disorder: Status: Acute (4) Cluster B personality disorder: Status: Acute (5) PTSD (post-traumatic stress disorder): Status: Acute (6) Acute stress reaction: Status: Acute Additional A&P Information This is a 26-year-old female with a long history of mental health issues and some addiction who presents a few days post due date off of her medication for the duration of the who had a stressful few days. 1. Current medication. Could restart medication after delivery unless he plans to nurse and then consideration of which medication to be explored. 2. No credible concern for lethality. Patient likely reacting to stress, lack of sleep and anxiety and fear. 3. No need for sitter or 96-hour hold. 4. Please let us know if psychiatry would be of any additional assistance. Involuntary Hold Information 96 Hour Hold: 96 Hour Involuntary Admission: No Attestations NPU Medical Necessity Statement*: N/A. Please see primary team note for medical necessity. Coding Level of Care Code Acute Rock Picker for Mindy Hernandez Diagnoses Cannabis abuse F12.10 Anxiety F41.9 Depressive disorder F32.9 Cluster B personality disorder F60.89 PTSD (post-traumatic stress disorder) F43.10 Acute stress reaction F43.0
--- NOTE | 2021-05-09 18:07 | PC.NURSE ---
Psychiatry Consult Dr. Sahni in to see patient and states she can be off 1:1 observation and he is going to sign off on her care at this time. Dr. Sahni does not feel like the patient is a threat to herself at this time.
[2021-05-09] MEDS: lactated ringers 1,000 ML 999 ML IV (23:10)
[2021-05-10] VITALS (150 sets, daily range): BP systolic 71–127; BP diastolic 32–77; PULSE 50–94; RESP 16–18; TEMP 36.8–37.2; O2SAT 84–100
--- NOTE | 2021-05-10 00:33 | P.ANESASSM_ITS ---
Pre-Anesthetic Assessment Pre-Anesthetic Assessment: Height/Weight: Height 1.6 m Weight 91.626 kg Temp Pulse Resp BP Pulse Ox 98.4 F 73 16 103/68 100 05/09/21 19:57 05/10/21 00:26 05/09/21 16:33 05/10/21 00:26 05/10/21 00:25 Preop Diagnosis: Term Proposed Procedure: BORIS Was Beta Preston taken within 24 hours: N/A Was Clonidine taken within 24 hours: N/A Social: Social History: No alcohol and No tobacco Exam: Pre-Anes Outpt Exam: alert, oriented x 3, clear to auscultation bilaterally and regular rate & rhythm Airway: Submandibular: WNL Cervical ROM: WNL MP: 2 Dentition: Full History/ROS: No significant history except as noted and No significant complaints Pulmonary: Pulmonary: None reported CV/HEM: CV/HEM: None reported : : None reported Hepatic: Hepatic: None reported GI: GI: None reported Metabolic: Metabolic: None reported Musc/skel: Musc/skel: None reported Neuropsych: Neuropsych: None reported Anesthetic Plan: ASA status: 2 Anesthesia: Regional (specify below) Risk of > 500 ml blood loss (7ml/kg in children): No Medications/Allergies Current Medications: Current Medications Generic Name Dose Route Start Last Admin Trade Name Freq PRN Reason Stop Dose Admin Lactated Ringer's 1,000 mls @ 999 m ls/hr 05/09/21 23:01 05/09/21 23:10 Lactated Ringers IV 999 mls/hr .Q1H1M PRN Administration See label comment s PFSH Anesthesia PFSH: Medical History (Reviewed 09/23/20 @ 22:40 by Jourdan Short MD, [facility] [place]) Blood type A+ History of depression Surgical History (Reviewed 09/23/20 @ 22:40 by Jourdan Short MD, [facility] [place]) H/O umbilical hernia repair (~2000) Performed in [place], [place] History of placement of ear tubes (~1999) Page 4 S/P ear surgery (~2008) Eardrum surgery. Performed in [place], [place] Family History (Reviewed 09/23/20 @ 22:40 by Jourdan Short MD, [facility] [place]) Mother Diabetes Stroke Hypertension Sister Diabetes Grandmother Diabetes Maternal Breast cancer Maternal Hypertension Maternal Family/Other Diabetes Maternal aunt Ovarian cancer Maternal great aunt, Maternal great grandmother Breast cancer Maternal aunt, Maternal great aunt Social History (Reviewed 09/23/20 @ 22:40 by Jourdan Short MD, [facility] [place]) Smoking and tobacco status: current every day smoker cigarettes Alcohol intake: current Alcohol intake frequency: few times a month Other details last substance use: Marijuana Female Reproductive History: Date of last menstrual period: 05/11/20 : 3 Data Anesthesia CBC & Chem 7: 05/09/21 11:05 Other Labs: Laboratory Results - last 48 hr 05/09/21 05/09/21 11:05 15:02 WBC 9.6 RBC 4.29 Hgb 11.1 L Hct 34.9 L MCV 81.4 MCH 25.9 L MCHC 31.8 RDW 14.9 Plt Count 277 MPV 10.9 H Neut % (Auto) 68.0 Lymph % (Auto) 23.1 [place] % (Auto) 6.1 Eos % (Auto) 0.9 Baso % (Auto) 0.6 Neut # (Auto) 6.54 Lymph # (Auto) 2.2 [place] # (Auto) 0.6 Eos # (Auto) 0.1 Baso # (Auto) 0.1 Nucleated RBC % (auto) 0 Nucleated RBCs # 0.0 Urine Opiates Screen Negative Ur Barbiturates Screen Negative Ur Phencyclidine Scrn Negative Ur Amphetamines Screen Negative U Benzodiazepines Scrn Negative Urine Cocaine Screen Negative U Marijuana (THC) Screen Negative Cardiac Studies: No Data to Display
--- NOTE | 2021-05-10 00:34 | P.ANES_ITS ---
Anesthesia Procedures Procedure/Date: 05/10/21 Epidural: Time Out Performed: Yes Consents Signed: Procedure Consent Consent: from patient, risks and benefits reviewed and patient agrees to proceed Lumbar Level: L2-L3 Epidural position: sitting Epidural procedure: sterile prep of area, 1% lidocaine to numb the area, 18 g needle, neg for parest hesia, test dose given, 1.5% xylocaine 1:200k epi (4cc), 0.2% Ropivacaine bolus ml (4cc with Fent 100mcg), no systemic response, sterile dressing applied, L.U.D. no apparent complications and 0.2% Ropiavacaine @ mls/hr (12cc/hour.JULES at 6cm. Cath placed 2 cm into epid space. Pt tolerated well)
[2021-05-10] MEDS: dextrose 5%-lactated ringers 1,000 ML 125 ML IV ×2 (01:10→08:26)
--- NOTE | 2021-05-10 03:07 | ANES.PROC ---
Anesthesia Procedures Procedure/Date: 05/10/21 Other Information: Pt C/O pain all over Lido 2% 5 cc and Fentanyl 100 mcg bolus given. no significant relief of alex. Pt refuses another epidural
--- NOTE | 2021-05-10 05:37 | ANES.PROC ---
Anesthesia Procedures Procedure/Date: 05/10/21 Epidural: Time Out Performed: Yes Consents Signed: Procedure Consent Consent: from patient Lumbar Level: L2-L3 Epidural procedure: sterile prep of area, 1% lidocaine to numb the area, 18 g needle, neg for paresthesia, test dose given, 1.5% xylocaine 1:200k epi, 0.2% Ropivacaine bolus ml (4cc and Fent 100mcg), no systemic response, sterile dressing applied, L.U.D. no apparent complications and 0.2% Ropiavacaine @ mls/hr (13cc/hour.prior epidural not controlling pain. D/C'd and restarted)
[2021-05-10] MEDS: oxytocin 30 UNIT/500 ML BAG IV (10:45)
--- NOTE | 2021-05-10 11:50 | P.PCNOB_ITS ---
Delivery Note: Date of delivery: May 10, 2021 Pre-Delivery Course: This patient was followed by this physician through most of her . There were no major problems or concerns. Maternal blood type was A+ with antibody screen negative. GBS was negative RPR was negative and antibody negative as well as COVID. [facility] and was admitted for misoprostel cervical ripening for term at 40 weeks and 3 days gestation. She delivered at 40 weeks and 4 days gestation. Delivery: Patient was given misoprostel 25 mcg x 1 dose yesterday early afternoon. That began contractions which slowly thinned her cervix and put her into active labor. She labored throughout the night requiring epidural anesthesia administrative volunteer and then a replacement of the epidural around 5:30 AM. She slowly dilated to complete cervical dilatation and was allowed to push. She rapidly pushed the baby down and delivered a healthy, viable male at 11:35 AM. The infant had terminal meconium but screamed well. After suctioning the infant the infant was then placed on mother's abdomen where the umbilical cord was clamped and cut by the 's father. Umbilical cord had 3 blood vessels and there was no nuchal cord. Infant Apgars were 8 and 9 at 1 and 5 minutes respectively. The infant weighed 8 pounds 15 ounces. The placenta delivered spontaneously at 11:39 AM. The perineum, vaginal vault and cervix were evaluated with no lacerations and no episiotomy was accomplished. There were no complications and at present time both mother and infant are doing well. Estimated blood loss was approximately 113 mL. History History History 5 Term 2 Miscarriages/Ectopic 2 0 Living Children 2 A&P Assessment and plan (1) Cannabis abuse: Stable Status: Acute (2) Anxiety: Stable at this time. She tolerated labor and delivery fairly well. Status: Acute (3) Depressive disorder: Stable, will discuss resuming medications when able. Status: Acute (4) Cluster B personality disorder: Status: Acute (5) PTSD (post-traumatic stress disorder): Status: Acute (6) Acute stress reaction: Status: Acute (7) Normal spontaneous vaginal delivery: Patient did well with labor and delivery process. She has a firm uterus at this time and will proceed with normal orders. We will adjust orders as necessary. Status: Acute Coding Level of Care Code Acute Bleacher Lard for Chg Fwd Diagnoses Cannabis abuse F12.10 Anxiety F41.9 Depressive disorder F32.9 Cluster B personality disorder F60.89 PTSD (post-traumatic stress disorder) F43.10 Acute stress reaction F43.0 Normal spontaneous vaginal delivery O80
--- NOTE | 2021-05-10 12:47 | ANE.PACU2 ---
Inpatient post-anesthesia follow up: Airway intact: Yes Vital signs: Temperature 98.9 F Pulse Rate 66 Respiratory Rate 18 Blood Pressure 112/56 Pulse Oximetry 98 Oxygen Delivery Me thod Room Air Oxygen Flow Rate Fraction of Inspir ed Oxygen Hydration adequate: Yes Nausea and vomiting: No Pain level: 1 Mental status: Baseline
[2021-05-10] MEDS: ibuprofen 800 mg tablet PO ×2 (13:51→20:57)
[2021-05-10] MEDS: benzocaine-menthol 78 gm Canister 1 SPRAY TOPICAL (13:52)
[2021-05-10] MEDS: lanolin oint 7 gm 1 APPLIC TOPICAL (13:52)
[2021-05-10] MEDS: acetaminophen 500 mg Tablet 1000 MG PO (15:48)
--- NOTE | 2021-05-10 15:55 | PC.NURSE ---
pt ambulated to OB12. oriented to room and call light. proud parent pack and feeding log discussed. pt up to bathroom without assistance. pt encouraged to call for assistance if needed, but may be up ad scotty.
[2021-05-10] MEDS: docusate sodium 100 mg Capsule PO (17:35)
[2021-05-10 23:57] LABS: Hematocrit 31.3 % (37.0-47.0); Hemoglobin 10.1 g/dL (11.5-15.3); Mean Corpuscular HGB Conc 32.3 g/dL (30.0-36.0); Mean Corpuscular Hemoglobin 25.7 pg (28.0-34.0); Mean Corpuscular Volume 79.6 fl (81-99); Mean Platelet Volume 10.3 fL (7.4-10.4); Platelet Count 246 10^3/cmm (130-400); Red Blood Count 3.93 10^6/uL (4.1-5.3); Red Cell Distribution Width 15.1 % (12.1-15.1); White Blood Count 17.1 10^3/uL (4.0-10.0)
[2021-05-11 01:30] VITALS: BP 94/57; PULSE 72; RESP 16
[2021-05-11] MEDS: acetaminophen 500 mg Tablet 1000 MG PO (04:04)
--- NOTE | 2021-05-11 07:33 | PM.OBGYDC ---
Discharge Providers PURCHASING/RECEIVING Date of Admission: 05/09/21 10:25 Date of Discharge: 05/11/21 Attending Provider at Admission: Shanu Vaughan MD Attending Provider at Discharge: Shaun Vaughan MD Diagnoses at Discharge Discharge Diagnosis (1) Cannabis abuse: Status: Acute (2) Anxiety: Status: Acute (3) Depressive disorder: Status: Acute (4) Cluster B personality disorder: Status: Acute (5) PTSD (post-traumatic stress disorder): Status: Acute (6) Acute stress reaction: Status: Acute (7) Normal spontaneous vaginal delivery: Status: Acute Reason for Visit Reason for Visit: Contractions Hospital Course Hospital Course Patient was admitted 2 days ago for induction of postdates labor. She is a little upset as she was put off a day and said some things that may be construed as potentially harmful to herself therefore, psychiatry was consulted. Dr. Sahni recommended no sitter and he had a great discussion with her. She was given misoprostel 25 rodrigo grams x1 dose and delivered yesterday morning by spontaneous vaginal delivery. Since delivery, she has done well. She has had mild lochia and no significant clots or cramps. The infant is breast-feeding well. She denies any other problems or concerns. She does, however wish to have a tubal ligation and will wait for 6 weeks for referral for that. Information Peripartum Data: Delivery Method: Vaginal Physical Exam Const: COMMON NORMALS: no acute distress, average body habitus and well nourished HENMT: COMMON NORMALS: moist oral mucous membranes Resp: COMMON NORMALS: normal respiratory effort, No retractions, No use of accessory muscles and clear to auscultation bilaterally AUSCULTATION: clear to auscultation bilaterally Cardio: COMMON NORMALS: regular rate and regular rhythm RATE: regular rate RHYTHM: regular rhythm GI: COMMON NORMALS: Normal to inspection, nondistended, normoactive bowel sounds present and Soft to palpation (Fundus is firm and well below the umbilicus.) PALPATION: Yes Soft to palpation (Fundus is firm and well below the umbilicus.) : COMMON NORMALS: Yes no CVA tenderness BLADDER/KIDNEY EXAM: Yes no CVA tenderness Back/Pelvis: COMMON NORMALS: no CVA tenderness Extremity: COMMON NORMALS: normal to inspection, full ROM and no clubbing, cyanosis or edema Neuro: COMMON NORMALS: no focal motor deficits and no sensory deficits noted Psych: COMMON NORMALS: mental status grossly normal, cooperative, normal affect and speech normal SPEECH: Yes normal speech Skin: COMMON NORMALS: no rashes or lesions noted GENERAL SKIN EXAM: no rashes or lesions noted Urinary Catheter Management^: Bob: Cath Placed During This Visit: yes, but has since been removed by the nurse Reason for Continuing Indwelling Catheter: Decision to DC Catheter Urinary Catheter Date of Insertion: 05/10/21 Urinary Catheter Time of Insertion: 01:25 Date Urinary Catheter Removed: 05/10/21 Time Urinary Catheter Discontinued: 11:30 History History History 5 Term 2 Miscarriages/Ectopic 2 0 Living Children 2 Discharge Data Data Completed and Pending: Labs from last 24 hours 05/10/21 23:50 WBC 17.1 H RBC 3.93 L Hgb 10.1 L Hct 31.3 L MCV 79.6 L MCH 25.7 L MCHC 32.3 RDW 15.1 Plt Count 246 MPV 10.3 Vitals: Last Vital Signs Temp 98.9 F 05/10/21 11:48 Pulse 72 05/11/21 01:30 Resp 16 05/11/21 01:30 BP 94/57 05/11/21 01:30 Pulse Ox 98 05/10/21 08:27 Discharge Plan Discharge Patient Disposition: Home Condition: Stable Prescriptions: New docusate sodium 100 mg Capsule 100 mg PO BID Qty: 60 RF: 1 ibuprofen 800 mg Tablet 800 mg PO TID Qty: 90 RF: 1 No Action No Known Home Medications RF: 0 Referrals: Shaun Vaughan MD [Physician] - 6 Weeks Discharge Diet: Usual diet Discharge Activity: Resume usual activity Patient Instructions: Depression (DC), Bleeding (DC), Preeclampsia and Eclampsia After Delivery (GEN), OB Discharge Report, OB Food/Drug Interaction Guide, Opioid Safety, OB Home Care, OB Vaginal Deliveries Discharge Attestations PURCHASING/RECEIVING Time Spent in Discharge Care*: less than 30 min Specific Discharge Activities: Specific discharge activities: educating patient, documenting/other paperwork and evaluating patient/reviewing data Coding Level of Care Code Acute Barrel Washer for [facility] [place] Fwd Diagnoses Cannabis abuse F12.10 Anxiety F41.9 Depressive disorder F32.9 Cluster B personality disorder F60.89 PTSD (post-traumatic stress disorder) F43.10 Acute stress reaction F43.0 Normal spontaneous vaginal delivery O80
[2021-05-11 08:30] VITALS: BP 93/49; PULSE 57; RESP 16; TEMP 36.9; O2SAT 98
[2021-05-11] MEDS: prenatal vitamin Capsule 1 CAP PO (08:30)
[2021-05-11] MEDS: ibuprofen 800 mg tablet PO (08:31)
[2021-05-11] MEDS: docusate sodium 100 mg Capsule PO (08:31)
[2021-05-11 13:00] VITALS: BP 100/65; PULSE 66; RESP 16; TEMP 36.4; O2SAT 97
== END 2021-05-11 13:20 | disposition home or self-care (01) | DRG 806 ==
LOC: OPOB 10:25 → OBGYN 10:25
PROVIDERS: Admitting Provider Family Medicine; Visit Provider Family Medicine
DX: O48.0 Post-term pregnancy (principal); O99.324 Drug use complicating childbirth; Z37.0 Single live birth; Z3A.40 40 weeks gestation of pregnancy; F12.10 Cannabis abuse, uncomplicated; O99.334 Smoking (tobacco) complicating childbirth; O99.344 Other mental disorders complicating childbirth; O77.0 Labor and delivery complicated by meconium in amniotic fluid; F41.8 Other specified anxiety disorders; F60.89 Other specific personality disorders; F43.10 Post-traumatic stress disorder, unspecified; F43.0 Acute stress reaction
CPT/HCPCS: 36415; 51702; 59025; 59409; 80306; 85025; 85027; 99211; J2795; J3010

== ENCOUNTER → 2021-08-09 15:02 | Outpatient (BNVA) | payer MEDICAID, SELFPAY | PROVIDERS: Visit Provider Registered Nurse Neonatal Intensive Care | DX: J11.1 Influenza due to unidentified influenza virus with other respiratory manifestations (principal); Z20.822 Contact with and (suspected) exposure to COVID-19 | CPT/HCPCS: 87631; 87635 ==

== ENCOUNTER 2021-10-06 13:06 | Emergency (ER) | payer MEDICAID, SELFPAY ==
[2021-10-06 13:45] VITALS: BP 106/71; PULSE 89; RESP 16; TEMP 36.5; O2SAT 97; BMI 30.1
--- NOTE | 2021-10-06 14:06 | ED_ITS ---
HPI - Allergic Reaction General: Chief complaint: Allergic Reaction Stated complaint: possible allergic reaction Time Seen by Provider: 10/06/21 14:06 History of Present Illness: HPI narrative: 26-year-old female comes in today with persistent urticarial rash for the last 3 days. Patient was seen on Friday when the rash was started and was given a dose of steroid and discussed that she is either had an allergic reaction or anxiety. Patient does have a history of anxiety and depression. Patient does report being under a lot more stress lately. Patient reports no difficulty swallowing, no difficulty breathing, and no other discomfort. Review of Systems ENMT: Denies: throat pain Card: Denies: chest pain Resp: Denies: dyspnea Skin/Breast: Reports: rash and pruritus Psych: Reports: anxiety PFSH ED PFSH: Medical History Blood type A+ History of depression Surgical History H/O umbilical hernia repair (~2000) Performed in [place], [place] History of placement of ear tubes (~1999) Page 4 S/P ear surgery (~2008) Eardrum surgery. Performed in [place], [place] Family History Mother Diabetes Stroke Hypertension Sister Diabetes Grandmother Diabetes Maternal Breast cancer Maternal Hypertension Maternal Family/Other Diabetes Maternal aunt Ovarian cancer Maternal great aunt, Maternal great grandmother Breast cancer Maternal aunt, Maternal great aunt Social History Smoking and tobacco status: current every day smoker cigarettes Alcohol intake: current Alcohol intake frequency: few times a month Other details last substance use: Marijuana Female Reproductive History: Date of last menstrual period: 05/11/20 Physical Exam Const: COMMON NORMALS: alert HENMT: COMMON NORMALS: normocephalic HEAD & SCALP: normocephalic Neck/C-Spine: COMMON NORMALS: full ROM Resp: COMMON NORMALS: normal respiratory effort and clear to auscultation bilaterally AUSCULTATION: clear to auscultation bilaterally Cardio: COMMON NORMALS: regular rate RATE: regular rate Extremity: COMMON NORMALS: no pedal edema Neuro: SENSORIUM/ORIENTATION: Yes alert Skin: RASHES: rashes noted (Generalized urticaria) Course Vital Signs: Vital signs: Vital Signs Temperature 97.7 F 10/06/21 13:45 Pulse Rate 89 10/06/21 13:45 Respiratory Rate 16 10/06/21 13:45 Blood Pressure 106/71 10/06/21 13:45 Pulse Oximetry 97 10/06/21 13:45 MDM - Allergic Reaction Medical Decision Making 26-year-old female comes in today with complaints of itching and rash all over her body. Patient reports a started about 3 days ago. Patient denies any difficulty breathing or swallowing. Patient appears in no pain. Patient has urticaria generalized to the body. Lungs are clear to auscultation. Vital signs are normal. Differential diagnosis includes allergic reaction, anxiety, idiopathic urticaria. We will start patient on cetirizine 10 mg twice a day and a 5-day course of prednisone 20 twice a day. Patient was written for some hydroxyzine pamoate to use 4 times a day as needed for breakthrough rash. Encourage plenty of fluids avoidance of extreme temperatures and avoidance of acidic or a spicy foods. Patient reported understanding of care plan need for follow-up or return to the ER. Discharge Plan Discharge Patient Disposition: Home Clinical Impression: Urticaria Condition: Stable Prescriptions: New cetirizine 10 mg tablet 10 mg PO BID Qty: 20 0RF hydroxyzine pamoate 50 mg capsule 50 mg PO QID PRN (Reason: itching) Qty: 30 0RF prednisone 20 mg tablet 20 mg PO BID 5 Days Qty: 10 0RF Discontinued methylprednisolone [Medrol (Dewayne)] 4 mg tablets,dose pack See Rx Instructions PO PER PKG DIR Qty: 21 0RF Rx Instructions: PO PER PKG DIR Discharge Orders: Discharge ED (Routine); Ordered 10/06/21 Ordered By: Michael Sweeney Discharge Diet: Usual diet Patient Instructions: Urticaria (ED) Activity Restrictions/Additional Instructions: Take medication as directed. Drink plenty of water with medication. Avoid spicy foods or acidic foods. Avoid overly hot showers or overly cold showers. Follow-up with primary care in 3 days for recheck. Return to ER for difficulty breathing, difficulty swallowing, or worsening symptoms. 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
[2021-10-06] MEDS: cetirizine 10 mg Tablet 20 MG PO (14:22)
[2021-10-06] MEDS: dexamethasone 4 mg Tablet 10 MG PO (14:23)
== END 2021-10-06 14:29 | disposition home or self-care (01) ==
PROVIDERS: Emergency Provider Nurse Practitioner Family
DX: L50.9 Urticaria, unspecified (principal); F41.9 Anxiety disorder, unspecified
CPT/HCPCS: 99283; J8540

== ENCOUNTER 2022-05-06 18:02 | Emergency (ER) | payer MEDICAID, SELFPAY ==
[2022-05-06 18:09] VITALS: BP 118/77; PULSE 82; RESP 14; TEMP 36.6; O2SAT 99
--- NOTE | 2022-05-06 18:46 | USR_ITS ---
PROCEDURE INFORMATION: Exam: US Nonobstetric Pelvis; Complete Exam date and time: 05/06/2022 7:46 PM Age: 27 years old Clinical indication: Patient HX: Unbearable mid-pelvic pain x 3 days. Has iud since May 2021. Cannot feel the string. G4-p3-a1. Lmp irregular with iud, has been spotting x 3 months. ; Additional info: Vaginal/pelvic pain, PT with iud x1 yr, lost strings and pain now for 2m TECHNIQUE: Imaging protocol: Transabdominal pelvic nonobstetric ultrasound. Complete exam. Real time ultrasound with image documentation. COMPARISON: 1. US pelvic complete* [id number] 07/19/2016 9:14 PM 2. Ob ultrasound 12/20/2020. FINDINGS: Uterus: IUD in appropriate position in the endometrial cavity. Normal endometrial stripe thickness measuring 7 mm. Right ovary/adnexa: Ovary is normal. No mass. Normal blood flow. Left ovary/adnexa: Ovary is normal. No mass. Normal blood flow. Intraperitoneal space: No intraperitoneal fluid. Urinary bladder: Normal. US/US pelvic with transvaginal IMPRESSION: 1. Appropriately placed IUD. 2. Otherwise, negative exam.
--- NOTE | 2022-05-06 18:48 | W.ED.FEMALGU ---
HPI - Female Genitourinary General: Chief complaint: Urogenital-Female Stated complaint: cramping, concerned about IUD Time Seen by Provider: 05/06/22 18:21 Source: patient Mode of arrival: ambulatory Limitations: no limitations History of Present Illness: Patient presents emergency department today at the recommendation of her [facility] CLAM [facility]EDGE for evaluation treatment of sharp pelvic pains and loss of her IUD strings for approximately 2 months. Patient states that she has had her IUD in place now for approximately 11 months. She states she had an IUD when she was a teenager and had always done well with them. Patient states she has not had a menstrual cycle for approximately 5 months and noticed approximately 2 months ago she was not able to feel her IUD strings. Patient did not think anything about it if she was not having any issues but later began noticing intermittent sharp pains in her low pelvic and vaginal area. Patient has noticed that the last few days pain has become more consistent and frequent. She did reach out to [facility]-the office that placed her IUD and they mention they do not have ultrasound capabilities for approximately 1 month and wanted her to come in to be seen. Patient denies any vaginal bleeding. She states she has had clear discharge ever since the IUD was placed but has not noticed any change, odor, or discoloration to the discharge. Patient has been abstinent for the last 6 months. Patient has not had nausea, vomiting, or diarrhea. Associated symptoms: Reports vaginal discharge (unchanged from baseline) Date of Last Menstrual Period: 05/11/20 Review of Systems General: Reports: 10 or more systems reviewed and unremarkable except in HPI and below : Reports: vaginal discharge (unchanged from baseline), pelvic pain and other (loss of IUD strings); Denies: dysuria, urinary frequency, vaginal odor or vaginal bleeding [facility] ED PFSH: Medical History Blood type A+ History of depression Surgical History H/O umbilical hernia repair (~2000) Performed in [place], [place] History of placement of ear tubes (~1999) Page 4 S/P ear surgery (~2008) Eardrum surgery. Performed in [place], [place] Family History Mother Diabetes Stroke Hypertension Sister Diabetes Grandmother Diabetes Maternal Breast cancer Maternal Hypertension Maternal Family/Other Diabetes Maternal aunt Ovarian cancer Maternal great aunt, Maternal great grandmother Breast cancer Maternal aunt, Maternal great aunt Social History Smoking and tobacco status: current every day smoker cigarettes Alcohol intake: current Alcohol intake frequency: few times a month Other details last substance use: Marijuana Female Reproductive History: Date of last menstrual period: 05/11/20 Spontaneous abortions: No Physical Exam Const: COMMON NORMALS: no acute distress, average body habitus, patient oriented x3 and alert HENMT: COMMON NORMALS: normocephalic, atraumatic, hearing grossly normal bilaterally and moist oral mucous membranes HEAD & SCALP: normocephalic and atraumatic Eye: COMMON NORMALS: Equal, round and reactive pupils present, EOMs intact bilaterally and conjunctivae normal CONJUNCTIVA: Yes conjunctivae normal PUPIL: Yes Equal, round and reactive pupils present Neck/C-Spine: COMMON NORMALS: no JVD Lymph: LYMPHATIC: no lymphadenopathy noted Resp: COMMON NORMALS: normal respiratory effort, No retractions and No use of accessory muscles Cardio: COMMON NORMALS: no JVD and regular rate RATE: regular rate GI: COMMON NORMALS: Normal to inspection, nondistended, normoactive bowel sounds present Extremity: COMMON NORMALS: normal to inspection, full ROM and capillary refill normal Neuro: COMMON NORMALS: patient oriented x3 SENSORIUM/ORIENTATION: Yes alert Psych: COMMON NORMALS: mental status grossly normal, cooperative, normal affect, speech normal and activity/motor behavior normal SPEECH: Yes normal speech Course Vital Signs: Vital signs: Vital Signs Temperature 97.8 F 05/06/22 18:09 Pulse Rate 88 05/06/22 19:37 Respiratory Rate 12 05/06/22 19:37 Blood Pressure 116/66 05/06/22 19:37 Pulse Oximetry 97 05/06/22 19:37 Oxygen Delivery Me thod 05/06/22 18:09 MDM - Female Medical Decision Making Patient presents to the ER today for evaluation treatment of pelvic pain. Patient is concerned about her IUD. She has no other acute concerns such as abnormal vaginal bleeding, discharge, or malodor. Patient has not been sexually active in 6 months. Urinalysis today showed 1+ bacteria however, there were no nitrites and no white blood cells. Patient did have some epithelial cells. I requested a culture be performed as I believe this may be specimen contamination. Ultrasound revealed no acute concerns and IUD is in its proper place. Discussed all this with the patient and recommended follow-up appointment with her primary care/DECKHAND CLAM DREDGE later this week for recheck. Patient was given strict return precautions for fever, change or worsening of abdominal pains. Differential Diagnosis Likely abdominal pain, acute appendicitis, constipation, endometriosis (IUD issues, PID, BV, UTI) and gastroenteritis Lab Data Radiology Impressions Pelvic/Transvag US 05/06/22 18:46 IMPRESSION: 1. Appropriately placed IUD. 2. Otherwise, negative exam. Laboratory Results HCG, Qual Negative (Negative) 05/06/22 18:40 Urine Color Yellow (Yellow) 05/06/22 18:40 Urine Appearance Hazy (CLEAR) A 05/06/22 18:40 Urine pH 7 (5-7) 05/06/22 18:40 Ur Specific Newborn 1.015 (1.005-1.030) 05/06/22 18:40 Urine Protein Neg (Negative) 05/06/22 18:40 Urine Glucose (UA) Norm (Normal) 05/06/22 18:40 Urine Ketones Negative (Negative) 05/06/22 18:40 Urine Blood Neg (Negative) 05/06/22 18:40 Urine Nitrate Negative (Negative) 05/06/22 18:40 Urine Bilirubin Neg (Negative) 05/06/22 18:40 Urine Urobilinogen Neg mg/dL (Negative) 05/06/22 18:40 Ur Leukocyte Esterase Negative (Negative) 05/06/22 18:40 Urine RBC Rare /hpf (0-2) 05/06/22 18:40 Urine WBC None /hpf (0-5) 05/06/22 18:40 Ur Squamous Epith Cells 5-10 /hpf (0-5) H 05/06/22 18:40 Amorphous Sediment 2+ /hpf 05/06/22 18:40 Urine Bacteria 1+ /hpf (NONE) H 05/06/22 18:40 Discharge Plan Discharge Patient Disposition: Home Clinical Impression: Pelvic pain Condition: Stable Prescriptions: No Action amoxicillin 500 mg tablet 500 mg PO BID 7 Days Qty: 14 0RF metronidazole 500 mg tablet 500 mg PO BID 7 Days Qty: 14 0RF cetirizine 10 mg tablet 10 mg PO BID Qty: 20 0RF hydroxyzine pamoate 50 mg capsule 50 mg PO QID PRN (Reason: itching) Qty: 30 0RF Discharge Orders: Discharge ED (Routine); Ordered 05/06/22 Ordered By: Justine Galvez Discharge Diet: Usual diet Discharge Activity: Increase activity as tolerated Patient Instructions: Pelvic Pain (ED) Activity Restrictions/Additional Instructions: Ultrasound revealed that your IUD is in the correct place and does not appear to have moved into the adnexa, partially dislodged, or embedded into the wall of the uterus. Your urinalysis had a small amount of bacteria but, there was some epithelial cells noted in your sample and there appeared to be no body response to an infection-there was no white blood cells or nitrites. I suspect that the bacteria is from the epithelial cells but I did asked the lab to culture urine specimen to make sure that any bacterial growth is from the skin and not from the urinary tract. Your vaginal swab showed no signs of yeast, bacterial vaginosis, or trichomonas. At this time, I do request that you call your primary care/DECKHAND CLAM DREDGE tomorrow morning to discuss. I think you would benefit from a follow-up to discuss any continued pelvic discomfort however, any new onset of vaginal bleeding, change or worsening of abdominal pains, fever, or vomiting on these to be seen and reevaluated. Coding Level of Care Code ED [place] Line Attendant for Chg Fwd Exam Comprehensive
[2022-05-06 19:02] LABS: HCG Qualitative Urine. Negative (Negative)
[2022-05-06 19:37] VITALS: BP 116/66; PULSE 88; RESP 12; O2SAT 97
[2022-05-06 19:59] LABS: Protein Urine Neg (Negative); Specific Gravity, Urine 1.015 (1.005-1.030); Urine Appearance Hazy (CLEAR); Urine Color Yellow (Yellow); pH Urine 7 (5-7)
[2022-05-06 20:00] LABS: Add Urine Culture? No; Add Urine Microscopic? YES; Amorphous Sediment Urine 2+ /hpf; Bacteria Urine 1+ /hpf; Bilirubin Urine Neg (Negative); Blood Urine Neg (Negative); Glucose Urine UA Norm (Normal); Ketones Urine Negative (Negative); Leukocyte Esterase Urine Negative (Negative); Nitrate Urine Negative (Negative); RBC Urine RARE /hpf (0-2); Urobilinogen Urine Neg (Negative)
== END 2022-05-06 21:28 | disposition home or self-care (01) ==
PROVIDERS: Emergency Medicine; Emergency Provider Physician Assistant
DX: R10.2 Pelvic and perineal pain (principal); F17.210 Nicotine dependence, cigarettes, uncomplicated
CPT/HCPCS: 76830; 76856; 81001; 81025; 87210; 87491; 87591; 99284

== ENCOUNTER 2022-09-06 11:31 | Outpatient (CLI) | payer MEDICAID, SELFPAY ==
--- NOTE | 2022-09-06 | MR_ITS ---
WS: [id number] MRI LEFT SHOULDER HISTORY: LT SHOULDER DERANGEMENT COMPARISON: LEFT shoulder radiograph 08/28/2022. TECHNIQUE: Multiplanar sequences of the shoulder joint are submitted. Normal AC joint. There is a very tiny amount of fluid in the subdeltoid bursa. No subacromial impinge ment. Biceps tendon is normally positioned in the bicipital groove. No os acromion. No rotator cuff muscle atrophy or edema. No rotator cuff tendon tears. Normal position of the humeral head. No labral tear. No joint effusion or fluid in the axillary pouch. MR/MR shoulder LT wo con* [id number] IMPRESSION: Normal MRI LEFT shoulder.
== END 2022-09-06 11:32 | disposition home or self-care (01) ==
PROVIDERS: PCP Physician Assistant; Visit Provider Physician Assistant
DX: M24.9 Joint derangement, unspecified (principal)
CPT/HCPCS: 73221

== ENCOUNTER 2023-02-10 04:59 | Emergency (ER) | payer MEDICAID, SELFPAY ==
[2023-02-10 05:05] VITALS: BP 125/72; PULSE 81; RESP 16; TEMP 36.9; O2SAT 98; BMI 37.2
--- NOTE | 2023-02-10 05:06 | XRR_ITS ---
PROCEDURE INFORMATION: Exam: XR Chest Exam date and time: 02/10/2023 5:10 AM Age: 27 years old Clinical indication: Cough TECHNIQUE: Imaging protocol: Radiologic exam of the chest. Views: 1 view. COMPARISON: CR XR chest 1V portable [id number] 09/23/2020 10:16 PM FINDINGS: Lungs: Unremarkable. No consolidation. Pleural spaces: Unremarkable. No pleural effusion. No pneumothorax. Heart/Mediastinum: Unremarkable. No cardiomegaly. Bones/joints: Unremarkable. XR/XR chest 1V portable [id number] IMPRESSION: No acute findings.
--- NOTE | 2023-02-10 05:07 | ED_ITS ---
HPI - URI/Sore Throat General: Chief Complaint: Upper Respiratory Infection Stated Complaint: Wants Covid Test Time Seen by Provider: 02/10/23 05:01 Source: patient Mode of arrival: ambulatory Limitations: no limitations History of Present Illness: 27-year-old female states for the last 2 days she had cough congestion body aches and chills. She is also had a sore throat and headache states been around multiple sick contacts. She is in no distress here denies vomiting denies any diarrhea she denies any worsening proving factors. Associated symptoms: Reports chills; Deny abdominal pain, chest pain, diarrhea, fever(s), headache(s), nausea or vomiting Review of Systems Const: Reports: chills and body aches; Denies: fever(s) or change in appetite Eyes: Denies: eye discomfort ENMT: Reports: throat pain; Denies: dental pain Card: Denies: chest pain Resp: Denies: dyspnea GI: Denies: abdominal pain, nausea, vomiting or diarrhea : Denies: dysuria Musc: Denies: neck pain or back pain Skin/Breast: Denies: rash Neuro: Denies: headache(s) PFSH ED PFSH: Medical History Blood type A+ History of depression Surgical History H/O umbilical hernia repair (~2000) Performed in [place], [place] History of placement of ear tubes (~1999) Page 4 S/P ear surgery (~2008) Eardrum surgery. Performed in [place], [place] Family History Mother Diabetes Stroke Hypertension Sister Diabetes Grandmother Diabetes Maternal Breast cancer Maternal Hypertension Maternal Family/Other Diabetes Maternal aunt Ovarian cancer Maternal great aunt, Maternal great grandmother Breast cancer Maternal aunt, Maternal great aunt Social History Smoking and tobacco/nicotine status: current every day tobacco/nicotine user cigarettes Alcohol intake: current Alcohol intake frequency: few times a month Substance/Drug Use: former Female Reproductive History: Spontaneous abortions: No Physical Exam Const: COMMON NORMALS: no acute distress, patient oriented x3 and healthy appearing HENMT: COMMON NORMALS: normocephalic and atraumatic HEAD & SCALP: normocephalic and atraumatic THROAT: posterior oropharynx normal Eye: COMMON NORMALS: conjunctivae normal CONJUNCTIVA: Yes conjunctivae normal Neck/C-Spine: COMMON NORMALS: full ROM, supple and no meningeal signs Chest: COMMONS NORMALS: normal inspection of the chest and normal palpation of entire chest wall Resp: COMMON NORMALS: normal respiratory effort, No retractions, No use of accessory muscles and clear to auscultation bilaterally AUSCULTATION: clear to auscultation bilaterally Cardio: COMMON NORMALS: regular rate, regular rhythm and No murmurs present (Cardio) RATE: regular rate RHYTHM: regular rhythm GI: INSPECTION: Yes normal to inspection Extremity: COMMON NORMALS: normal to inspection and full ROM Neuro: COMMON NORMALS: patient oriented x3, moves all extremities and no focal motor deficits MENINGEAL SIGNS: Yes no meningeal signs Psych: COMMON NORMALS: mental status grossly normal, Normal thought process present and cooperative THOUGHT PROCESS: Normal thought process present Skin: COMMON NORMALS: no rashes or lesions noted and no wounds GENERAL SKIN EXAM: no rashes or lesions noted Course Vital Signs: Vital signs: Vital Signs Temperature 98.5 F 02/10/23 05:05 Pulse Rate 81 02/10/23 05:05 Respiratory Rate 16 02/10/23 05:05 Blood Pressure 125/72 02/10/23 05:05 Pulse Oximetry 98 02/10/23 05:05 Oxygen Delivery Me thod Room Air 02/10/23 05:05 MDM - URI/Sore Throat Medical Decision Making Patient presents here with cough congestion likely viral URI x-ray shows no pneumonia patient's pending viral panel she is stable for discharge she is to follow-up with PCP and return if worsening. Medical Records I reviewed the patient's medical records. XR interpretation done by ED provider, pending radiology final review ED provider radiology interpretation(s): xr chest: no acute abnormality Discharge Plan Discharge Patient Disposition: Home Clinical Impression: Upper respiratory infection Condition: Stable Prescriptions: No Action amoxicillin 500 mg tablet 500 mg PO BID 7 Days Qty: 14 0RF metronidazole 500 mg tablet 500 mg PO BID 7 Days Qty: 14 0RF cetirizine 10 mg tablet 10 mg PO BID Qty: 20 0RF hydroxyzine pamoate 50 mg capsule 50 mg PO QID PRN (Reason: itching) Qty: 30 0RF Discharge Orders: Discharge ED (Routine); Ordered 02/10/23 Ordered By: David Dumont Referrals: Mendy Hobbs PA [Primary Care Provider] - 1-3 days Discharge Diet: Advance as tolerated Discharge Activity: Resume usual activity Patient Instructions: Upper Respiratory Infection (ED) Stand Alone Forms: Work/School Release Coding Level of Care Code ED Switchboard Operator Receptionist for Mindy Hernandez
[2023-02-10] MEDS: dexamethasone 10 mg/mL INJ IM (05:14)
[2023-02-10] MEDS: ketorolac 60 mg/2 mL INJ IM (05:14)
[2023-02-10 05:23] VITALS: BP 125/72; PULSE 81; RESP 16; TEMP 36.9; O2SAT 98
[2023-02-10 07:01] LABS: Adenovirus Not Detected (NOT DETECT); Chlamydia Pneumoniae Not Detected (NOT DETECT); Coronavirus 229E,HKU1,NL63,OC4 Not Detected (NOT DETECT); Human Metapneumovirus Not Detected (NOT DETECT); Human Rhinovirus/Enterovirus Detected (NOT DETECT); Influenza A Not Detected (NOT DETECT); Influenza A H1 Not Detected (NOT DETECT); Influenza A H1-2009 Not Detected (NOT DETECT); Influenza A H3 Not Detected (NOT DETECT); Influenza B Not Detected (NOT DETECT); Mycoplasma Pneumoniae Not Detected (NOT DETECT); Parainfluenza Virus Type 1 Not Detected (NOT DETECT); Parainfluenza Virus Type 2 Not Detected (NOT DETECT); Parainfluenza Virus Type 3 Not Detected (NOT DETECT); Parainfluenza Virus Type 4 Not Detected (NOT DETECT); Respiratory Syncytial Virus A Not Detected (NOT DETECT); Respiratory Syncytial Virus B Not Detected (NOT DETECT); SARS-COV-2 Not Detected (NOT DETECT)
== END 2023-02-10 05:24 | disposition home or self-care (01) ==
PROVIDERS: Emergency Provider Emergency Medicine; PCP Physician Assistant
DX: J06.9 Acute upper respiratory infection, unspecified (principal)
CPT/HCPCS: 71045; 87486; 87581; 87633; 96372; 99284; J1100; J1885

== ENCOUNTER 2023-06-23 18:56 | Emergency (ER) | payer MEDICAID, SELFPAY ==
[2023-06-23 19:02] VITALS: BP 110/66; PULSE 105; RESP 14; TEMP 36.7; O2SAT 96; BMI 36.5
--- NOTE | 2023-06-23 19:13 | CT_ITS ---
WS: [id number] CT HEAD NONCONTRAST HISTORY: dizziness, seizure like activity TECHNIQUE: Contiguous axial imaging performed through the brain in 2.5 mm imaging. Bone and soft tiss ue windows. Sagittal and coronal reformats reviewed. All CT scans at [facility] use at least one of these dose optimization techniques: automated exposure control; mA and/or kV adjustment per pa tient size (includes targeted exams where dose is matched to clinical indication); or iterative recon struction. DLP: 997.28 mGy.cm COMPARISON: 10/05/2017 No acute intracranial hemorrhage, midline shift or mass effect. No atrophy or prior infarcts or herniation. Ventricles: Normal size with no hydrocephalus. Paranasal sinuses: As visualized are clear. Mastoid air cells: Well pneumatized. Calvarium and scalp: Skull is intact with no soft tissue edema or swelling. IMPRESSION: Negative head CT.
--- NOTE | 2023-06-23 19:13 | XRR_ITS ---
PROCEDURE INFORMATION: Exam: XR Chest Exam date and time: 06/23/2023 7:17 PM Age: 28 years old Clinical indication: Other: Dizziness; Additional info: Diziness TECHNIQUE: Imaging protocol: Radiologic exam of the chest. Views: 1 view. COMPARISON: CR XR chest 1V portable [id number] 02/10/2023 5:10 AM FINDINGS: Lungs: Unremarkable. No consolidation. Pleural spaces: Unremarkable. No pleural effusion. No pneumothorax. Heart/Mediastinum: Unremarkable. No cardiomegaly. Bones/joints: Unremarkable. XR/XR chest 1V portable [id number] IMPRESSION: No acute plain radiographic cardiopulmonary abnormality or interval change from 02/10/2023.
--- NOTE | 2023-06-23 19:14 | ECG_ITS ---
[facility] Test Date: 2023-06-23 Pat Name: Felicitas Cuevas Department: Room: Gender: Female Neurosurgery Spine Physician: : 1995 Requested By: Marky Ruth Order Number: [id number] Erica MD: Mitzi Winston M.D. Measurements Intervals [place] Rate: 64 P: 71 IN: 171 QRS: 93 QRSD: 102 T: 73 QT: 421 QTc: 434 Interpretive Statements SINUS RHYTHM WITH SINUS ARRHYTHMIA BORDERLINE RIGHT AXIS DEVIATION [QRS AXIS > 90] Compared to ECG 11/09/2015 17:18:03 No significant changes Electronically Signed On 06-24-2023 0:43:12 CLAIMS CONSULTANT by Mitzi Winston M.D. [email or web address]
[2023-06-23 19:32] LABS: Basophils # 0.1 10^3/uL (0.0-0.1); Basophils % 0.5 %; Eosinophils # 0.3 10^3/uL (0.0-0.8); Eosinophils % 2.1 %; Hematocrit 40.2 % (36-47); Lymphocytes # 4.5 10^3/uL (0.8-4.8); Lymphocytes % 37.8 %; Mean Corpuscular HGB Conc 33.3 g/dL (30-55); Mean Corpuscular Hemoglobin 29.6 pg (27-33); Mean Corpuscular Volume 88.7 fl (85-98); Mean Platelet Volume 8.9 fL (7.4-10.4); Monocytes # 0.7 10^3/uL (0.2-0.9); Monocytes % 5.8 %; Neutrophils # 6.35 10^3/uL (1.8-7.7); Neutrophils % 53.5 %; Nucleated Red Blood Cells % 0 %; Platelet Count 324 10^3/cmm (157-399); Red Blood Count 4.53 10^6/uL (3.85-5.65); Red Cell Distribution Width 12.8 % (12.1-15.1); White Blood Count 11.87 10^3/uL (3.29-11.43)
[2023-06-23 20:00] LABS: Alanine Aminotransferase 26 U/L (0-33); Albumin Level 3.9 g/dL (3.5-5.2); Alkaline Phosphatase 77 U/L (35-105); Anion Gap 15.7 (5-19); Aspartate Amino Transferase 20 U/L (0-32); Blood Urea Nitrogen 8 mg/dL (6-20); Carbon Dioxide 20 mmol/L (22-29); Chloride 106 mmol/L (98-107); Creatinine Clr Calc Pharmacy 151.6501; Globulin 2.6 g/dL (1.3-4.6); Glucose 103 mg/dL (65-115); Magnesium 1.8 mg/dL (1.7-2.3); Osmolality Calculated 285 mOsm/kg (285-295); Potassium 3.7 mmol/L (3.5-5.1); Sodium 138 mmol/L (136-145); Total Bilirubin 0.3 mg/dL (0.15-1.2); Total Protein 6.5 g/dL (6.6-8.7)
[2023-06-23 20:02] LABS: Troponin(5th) Baseline < 6 ng/L (0-10)
--- NOTE | 2023-06-23 20:23 | ED_ITS ---
HPI - Dizziness 2 General: Chief Complaint: Dizziness Stated Complaint: dizzy, feels like something in head, seizure Time Seen by Provider: 06/23/23 19:13 History of Present Illness: HPI Narrative: Patient presents to the ER for feeling shaky, dizzy, nauseous and just not right in her head. These episodes have been intermittently coming and going since about 1 week. She says she feels like when these happen if she closes her eyes she may just . Patient has had these episodes 1 time before but does not remember being worked up for them. Patient denies any fever chills coughs colds shortness of breath diarrhea constipation or urinary tract symptoms. Patient states she has a headache that wraps around from baptist through forehead to baptist in a bandlike progression. Patient has not found anything that makes these better or worse. They come and go on their own. Patient is not currently taking any medicine, no known allergies, no recent surgeries. Review of Systems 2 General: Reports: 10 or more systems reviewed and unremarkable except in HPI and below PFSH ED 2 PFSH: Medical History Blood type A+ History of depression Surgical History H/O umbilical hernia repair (~2000) Performed in [place], [place] S/P ear surgery (~2008) Eardrum surgery. Performed in [place], [place] History of placement of ear tubes (~1999) Page 4 Family History Mother Diabetes Stroke Hypertension Sister Diabetes Grandmother Diabetes Maternal Breast cancer Maternal Hypertension Maternal Family/Other Diabetes Maternal aunt Ovarian cancer Maternal great aunt, Maternal great grandmother Breast cancer Maternal aunt, Maternal great aunt Social History Smoking and tobacco/nicotine status: current every day tobacco/nicotine user cigarettes Alcohol intake: current Alcohol intake frequency: few times a month Substance/Drug Use: former Female Reproductive History: Spontaneous abortions: No Physical Exam 2 Const: COMMON NORMALS: no acute distress, average body habitus, patient oriented x3, no limitations, healthy appearing, alert and well nourished HENMT: COMMON NORMALS: normocephalic, atraumatic, hearing grossly normal bilaterally, external ears normal, EAC's normal, Normal external nose present, moist oral mucous membranes and oropharynx normal HEAD & SCALP: normocephalic and atraumatic NOSE: Normal external nose present EXTERNAL EAR: Yes external ears normal EXTERNAL AUDITORY CANAL: EAC's normal Eye: COMMON NORMALS: Equal, round and reactive pupils present, EOMs intact bilaterally, conjunctivae normal and no scleral icterus CONJUNCTIVA: Yes conjunctivae normal PUPIL: Yes Equal, round and reactive pupils present Neck/C-Spine: COMMON NORMALS: full ROM, no lymphadenopathy, supple, no meningeal signs, no JVD and Thyroid normal THYROID: Thyroid normal Chest: COMMONS NORMALS: normal inspection of the chest and normal palpation of entire chest wall Resp: COMMON NORMALS: normal respiratory effort, No retractions, No use of accessory muscles and clear to auscultation bilaterally AUSCULTATION: clear to auscultation bilaterally Cardio: COMMON NORMALS: no JVD, regular rate, regular rhythm, S1 normal heart sound present, S2 normal heart sound present, No gallops present (Cardio), No clicks present (Cardio), No murmurs present (Cardio) and No rub (Cardio) R ATE: regular rate RHYTHM: regular rhythm HEART SOUNDS: S1 normal heart sound present and S2 normal heart sound present GI: COMMON NORMALS: Normal to inspection, nondistended, normoactive bowel sounds present, Soft to palpation, non-tender, No hepatosplenomegaly present and no masses PALPATION: Yes Soft to palpation and Yes No hepatosplenomegaly present Neuro: COMMON NORMALS: patient oriented x3 SENSORIUM/ORIENTATION: Yes alert MENINGEAL SIGNS: Yes no meningeal signs Course 2 Vital Signs: Vital signs: Vital Signs Temperature 98.1 F 06/23/23 19:02 Pulse Rate 65 06/23/23 23:31 Respiratory Rate 14 06/23/23 19:02 Blood Pressure 98/63 06/23/23 23:31 Pulse Oximetry 99 06/23/23 23:31 Oxygen Delivery Me thod Room Air 06/23/23 19:02 MDM - Dizziness Medical Decision Making Physical exam was performed lab work was obtained as well as urine urine drug screen and chest x-ray. All of which was essentially benign or negative. Patient was given 1 L normal saline and 4 mg Zofran IV. Patient be discharged home to follow-up with her family practice physician for further evaluation and testing. Differential Diagnosis Unlikely adverse reaction to drug, benign paroxysmal positional vertigo, orthostatic hypotension, vertebral basilar insufficiency, cerebrovascular accident, acute vestibular neuronitis or transient cerebral ischemia Medical Records I reviewed the patient's medical records. Lab Data I reviewed the patient's lab results. 06/23/23 19:23 06/23/23 19:23 Radiology Impressions Chest X-Ray 06/23/23 19:13 IMPRESSION: No acute plain radiographic cardiopulmonary abnormality or interval change from 02/10/2023. Laboratory Results WBC 11.87 10^3/uL (3.29-11.43) H 06/23/23 19:23 RBC 4.53 10^6/uL (3.85-5.65) 06/23/23 19:23 Hgb 13.40 g/dL (11.27-16.99) 06/23/23 19:23 Hct 40.2 % (36-47) 06/23/23 19:23 MCV 88.7 fl (85-98) 06/23/23 19:23 MCH 29.6 pg (27-33) 06/23/23 19:23 MCHC 33.3 g/dL (30-55) 06/23/23 19:23 RDW 12.8 % (12.1-15.1) 06/23/23 19:23 Plt Count 324 10^3/cmm (157-399) 06/23/23 19:23 MPV 8.9 fL (7.4-10.4) 06/23/23 19: Neut % (Auto) 53.5 % 06/23/23 19: Lymph % (Auto) 37.8 % 06/23/23 19:23 [place] % (Auto) 5.8 % 06/23/23 19:23 Eos % (Auto) 2.1 % 06/23/23 19:23 Baso % (Auto) 0.5 % 06/23/23: Neut # (Auto) 6.35 10^3/uL (1.8-7.7) 06/23/23 19:23 Lymph # (Auto) 4.5 10^3/uL (0.8-4.8) 06/23/23 19: [place] # (Auto) 0.7 10^3/uL (0.2-0.9) 06/23/23 19:23 Eos # (Auto) 0.3 10^3/uL (0.0-0.8) 06/23/23 19:23 Baso # (Auto) 0.1 10^3/uL (0.0-0.1) 06/23/23 19:23 Nucleated RBC % (auto) 0 % 06/23/23 19:23 Nucleated RBCs # 0.0 /100WBC 06/23/23 19:23 Sodium 138 mmol/L (136-145) 06/23/23 19:23 Potassium 3.7 mmol/L (3.5-5.1) 06/23/23 19:23 Chloride 106 mmol/L (98-107) 06/23/23 19:23 Carbon Dioxide 20 mmol/L (22-29) L 06/23/23 19:23 Anion Gap 15.7 (5-19) 06/23/23 19:23 BUN 8 mg/dL (6-20) 06/23/23 19:23 Creatinine 0.6 mg/dL (0.5-0.9) 06/23/23 19:23 GFR Calculation 119.0 mL/min (90-130) 06/23/23 19:23 Glucose 103 mg/dL (65-115) 06/23/23 19:23 Calculated Osmolality 285 mOsm/kg (285-295) 06/23/23 19:23 Calcium 9.0 mg/dL (8.5-10.5) 06/23/23 19:23 Magnesium 1.8 mg/dL (1.7-2.3) 06/23/23 19:23 Total Bilirubin 0.3 mg/dL (0.15-1.2) 06/23/23 19:23 AST 20 U/L (0-32) 06/23/23 19:23 ALT 26 U/L (0-33) 06/23/23 19:23 Alkaline Phosphatase 77 U/L (35-105) 06/23/23 19:23 Troponin T Baseline < 6 ng/L (0-10) 06/23/23 19:23 Troponin T 120 Minute 6.00 ng/L (0-10) 06/23/23 21:17 Delta Troponin T 0.78106 ABS# (0-10) 06/23/23 21:17 Total Protein 6.5 g/dL (6.6-8.7) L 06/23/23 19:23 Albumin 3.9 g/dL (3.5-5.2) 06/23/23 19:23 Globulin 2.6 g/dL (1.3-4.6) 06/23/23 19:23 Urine Color Light yellow (Yellow) 06/23/23 21:10 Urine Appearance Sl hazy (CLEAR) A 06/23/23 21:10 Urine pH 6.5 (5-7) 06/23/23 21:10 Ur Specific [place] 1.015 (1.005-1.030) 06/23/23 21:10 Urine Protein Neg (Negative) 06/23/23 21:10 Urine Glucose (UA) Norm (Normal) 06/23/23 21:10 Urine Ketones Negative (Negative) 06/23/23 21:10 Urine Blood Neg (Negative) 06/23/23 21:10 Urine Nitrate Negative (Negative) 06/23/23 21:10 Urine Bilirubin Neg (Negative) 06/23/23 21:10 Urine Urobilinogen Norm mg/dL (Negative) 06/23/23 21:10 Ur Leukocyte Esterase Negative (Negative) 06/23/23 21:10 Urine RBC 0-4 /hpf (0-2) H 06/23/23 21:10 Urine WBC 0-4 /hpf (0-5) H 06/23/23 21:10 Ur Squamous Epith Cells 5-10 /hpf (0-5) H 06/23/23 21:10 Amorphous Sediment Not Reportable 06/23/23 21:10 Urine Bacteria 2+ /hpf (NONE) H 06/23/23 21:10 Urine Opiates Screen Negative ng/mL (Negative) 06/23/23 21:10 Ur Barbiturates Screen Negative ng/mL (Negative) 06/23/23 21:10 Ur Phencyclidine Scrn Negative ng/mL (Negative) 06/23/23 21:10 Ur Amphetamines Screen Negative ng/mL (Negative) 06/23/23 21:10 U Benzodiazepines Scrn Positive ng/mL (Negative) H 06/23/23 21:10 Urine Cocaine Screen Negative ng/mL (Negative) 06/23/23 21:10 U Marijuana (THC) Screen Negative ng/mL (Negative) 06/23/23 21:10 All radiology interpretation(s) finalized by discharge EKG Data EKG 1: I personally reviewed and interpreted this EKG as follows: EKG interpretation date: 06/23/23 EKG interpretation time: 21:10 Prior EKG tracings: not available for review Interpretation: Ventricular rate 71 bpm, MS interval 178, QRS duration 104, QTc of 423, sinus rhythm with marked sinus arrhythmia, borderline right axis deviation, incomplete right bundle branch block Discharge Plan Discharge Patient Disposition: Home Clinical Impression: Dizziness Condition: Stable Prescriptions: No Action No Known Home Medications Discharge Orders: Discharge ED (Routine); Ordered 06/23/23 Ordered By: Marky Ruth Referrals: Mendy Hobbs PA [Primary Care Provider] - 1 week Patient Instructions: Dizziness Activity Restrictions/Additional Instructions: Your evaluation in the ER that included lab work, urinalysis chest x-ray and head CT did not reveal acute cause of your feeling dizzy or abnormal you may benefit from further evaluation testing. Please follow-up with your family practice physician within the next 7 days for this.. Coding Level of Care Code ED Armored Truck Driver for Mindy Hernandez
[2023-06-23] MEDS: sodium chloride 0.9% 1,000 ML 999 ML IV (20:40)
[2023-06-23] MEDS: ondansetron 2 mg/ML SDV 2 mL 4 MG IVP (20:40)
[2023-06-23 21:34] VITALS: BP 98/65; O2SAT 97
[2023-06-23 21:47] LABS: Add Urine Microscopic? YES; Bilirubin Urine Neg (Negative); Blood Urine Neg (Negative); Glucose Urine UA Norm (Normal); Ketones Urine Negative (Negative); Leukocyte Esterase Urine Negative (Negative); Nitrate Urine Negative (Negative); Protein Urine Neg (Negative); Specific Gravity, Urine 1.015 (1.005-1.030); Urine Appearance SL Hazy (CLEAR); Urine Color Light yellow (Yellow); Urobilinogen Urine Norm (Negative); pH Urine 6.5 (5-7)
[2023-06-23 21:48] LABS: Bacteria Urine 2+ /hpf; RBC Urine 0-4 /hpf (0-2); WBC Urine 0-4 /hpf (0-5)
[2023-06-23 21:49] LABS: Add Urine Culture? No
[2023-06-23 21:56] LABS: Troponin 5 2HR Delta 0.00001 ABS# (0-10)
[2023-06-23 21:58] LABS: Amphetamines Screen Urine Negative (Negative); Barbiturates Screen Urine Negative (Negative); Benzodiazepines Screen Urine Positive (Negative); Cocaine Screen Urine Negative (Negative); Opiate Screen Urine Negative (Negative); PCP Screen Urine Negative (Negative); THC Screen Urine Negative (Negative)
[2023-06-23 23:31] VITALS: BP 98/63; PULSE 65; O2SAT 99
== END 2023-06-23 23:34 | disposition home or self-care (01) ==
PROVIDERS: Emergency Provider Emergency Medicine; PCP Physician Assistant
DX: R42 Dizziness and giddiness (principal); F17.210 Nicotine dependence, cigarettes, uncomplicated
CPT/HCPCS: 36415; 70450; 71045; 80053; 80306; 81001; 83735; 84484; 85025; 93005; 96361; 96374; 99285; J2405; J7030

== ENCOUNTER → 2023-09-16 14:11 | Outpatient (BNVA) | payer MEDICAID, SELFPAY | PROVIDERS: PCP Physician Assistant; Visit Provider Nurse Practitioner Family | DX: R39.9 Unspecified symptoms and signs involving the genitourinary system (principal) | CPT/HCPCS: 81000; 87077; 87086; 87184 ==

== ENCOUNTER → 2023-11-18 17:33 | Outpatient (BNVA) | payer MEDICAID, SELFPAY | PROVIDERS: PCP Physician Assistant; Visit Provider Registered Nurse Neonatal Intensive Care | DX: R39.9 Unspecified symptoms and signs involving the genitourinary system (principal); Z20.2 Contact with and (suspected) exposure to infections with a predominantly sexual mode of transmission | CPT/HCPCS: 81000; 87491; 87591 ==

== ENCOUNTER → 2024-01-21 11:51 | Outpatient (BNVA) | payer MEDICAID, SELFPAY | PROVIDERS: PCP Physician Assistant; Visit Provider Nurse Practitioner | DX: R50.9 Fever, unspecified (principal) | CPT/HCPCS: 87400; 87426 ==

== ENCOUNTER → 2024-04-05 16:08 | Outpatient (BNVA) | payer MEDICAID, SELFPAY | PROVIDERS: PCP Physician Assistant | DX: Z20.2 Contact with and (suspected) exposure to infections with a predominantly sexual mode of transmission (principal); R30.0 Dysuria | CPT/HCPCS: 81000; 87491; 87591; 87661 ==

== ENCOUNTER 2024-10-18 14:00 | Emergency (ER) | payer MEDICAID, SELFPAY ==
[2024-10-18 14:20] VITALS: PULSE 125; RESP 26; TEMP 37.2; O2SAT 97; BMI 31.5
--- NOTE | 2024-10-18 14:29 | CTR_ITS ---
PROCEDURE INFORMATION: Exam: CT Abdomen And Pelvis With Contrast Exam date and time: 10/18/2024 4:05 PM Age: 29 years old Clinical indication: Abdominal pain; Generalized; Prior surgery; Surgery date: 6+ months; Surgery type: Hernia; Additional info: Abd pain TECHNIQUE: Imaging protocol: Computed tomography of the abdomen and pelvis with contrast. Radiation optimization: All CT scans at this facility use at least one of these dose optimization techniques: automated exposure control; mA and/or kV adjustment per patient size (includes targeted exams where dose is matched to clinical indication); or iterative reconstruction. Contrast material: OMNIPAQUE 350; Contrast volume: 100 ml; Contrast route: INTRAVENOUS (IV); COMPARISON: US pelv w/transvag [id number] 05/06/2022 7:46 PM RADIATION DOSE METRICS: Total DLP (mGy-cm): 696.18 FINDINGS: Lungs: Lung bases are clear. Liver: The liver is normal. Gallbladder and biliary ducts: The gallbladder is normal. There is no biliary dilation. Pancreas: The pancreas is unremarkable. Spleen: The spleen is unremarkable. Adrenal glands: The adrenal glands are unremarkable. Kidneys and ureters: The kidneys are unremarkable. No hydronephrosis or stones. No ureteral dilation. Stomach and bowel: The stomach is unremarkable. The small bowel is nondilated. The colon is nondistended and contains fluid and gas. No stool is seen in the colon. There is no colonic mucosal thickening, pericolonic edema or abnormal mucosal enhancement. Appendix: The appendix is not visible. Intraperitoneal space: There is no free air or significant intraperitoneal free fluid. Vasculature: The portal, splenic and superior mesenteric veins are patent. The aorta is unremarkable. There is no aneurysm. Lymph nodes: There is no lymphadenopathy in the retroperitoneum, mesentery, pelvis or inguinal regions. Urinary bladder: The urinary bladder is unremarkable. Reproductive: An intrauterine device is appropriately positioned within the endometrial canal. There is no adnexal mass or large cyst. There is a 2.7 cm dominant follicle in the right ovary. Bones/joints: There are chronic bilateral L5 pars defects without spondylolisthesis. There is mild degenerative disease in the lumbar spine. Soft tissues: The abdominal wall is intact. CT/CT abdomen pelvis w con* [id number] IMPRESSION: 1. Nondistended fluid and gas filled colon without other evidence of inflammation, consistent with a diarrheal illness. 2. Incidental findings above.
--- NOTE | 2024-10-18 14:33 | ED_ITS ---
HPI - Abdominal Pain 2 General: Chief Complaint: Abdominal Pain Stated Complaint: abd pain,n,v,d,dizzy Time Seen by Provider: 10/18/24 14:28 Source: patient Mode of arrival: ambulatory Limitations: no limitations History of Present Illness: 29-year-old female who states that she h as been having abdominal pain over the last 2 days states it has been severe today in her lower abdomen states pain sharp in nature rates it a 9 out of 10 she has had vomiting and diarrhea as well. She denies any fevers denies any worse improving factors. Associated Symptoms: Reports diarrhea, nausea and vomiting; Denies chills, dysuria and fever(s) Related Data Home Medications ?Medication ?Instructions ?Recorded ?Confirmed duloxetine 30 mg capsule,delayed 30 mg PO DAILY 10/18/24 release meloxicam 15 mg tablet 15 mg PO DAILY 10/18/2409/27 quetiapine 100 mg tablet 100 mg PO BID 10/18/2410/18 tirzepatide (weight loss) 7.5 7.5 mg SUBCUT Q7D 10/18/24 mg/0.5 mL subcutaneous pen injector (Zepbound) Previous Rx's ?Medication ?Instructions ?Recorded dicyclomine 20 mg tablet 20 mg PO TID PRN abdominal p ain 10/18/24 #20 tabs ondansetron 4 mg disintegrating 4 mg PO Q6H PRN nausea and 10/18/24 tablet vomiting #14 tabs Allergies Allergy/AdvReac Type Severity Reaction Status Date / Time No Known Allergies Allergy Verified 10/18/24 14:24 Review of Systems 2 Const: Denies: fever(s), chills, body aches or change in appetite ENMT: Denies: throat pain or dental pain Card: Denies: chest pain Resp: Denies: dyspnea GI: Reports: abdominal pain, nausea, vomiting and diarrhea : Denies: dysuria Musc: Denies: neck pain or back pain Skin/Breast: Denies: rash Neuro: Denies: headache(s) PFSH ED 2 PFSH: Medical History Blood type A+ History of depression Surgical History H/O umbilical hernia repair (~2000) Performed in [place], [place] S/P ear surgery (~2008) Eardrum surgery. Performed in [place], [place] History of placement of ear tubes (~1999) Page 4 Family History Mother Diabetes Stroke Hypertension Sister Diabetes Grandmother Diabetes Maternal Breast cancer Maternal Hypertension Maternal Family/Other Diabetes Maternal aunt Ovarian cancer Maternal great aunt, Maternal great grandmother Breast cancer Maternal aunt, Maternal great aunt Social History Smoking and tobacco/nicotine status: current every day tobacco/nicotine user cigarettes Alcohol intake: current Alcohol intake frequency: few times a month Substance/Drug Use: former Female Reproductive History: Spontaneous abortions: No Physical Exam 2 Const: COMMON NORMALS: no acute distress, patient oriented x3 and healthy appearing HENMT: COMMON NORMALS: normocephalic and atraumatic HEAD & SCALP: n ormocephalic and atraumatic Eye: COMMON NORMALS: conjunctivae normal CONJUNCTIVA: Yes conjunctivae normal Neck/C-Spine: COMMON NORMALS: full ROM and supple Chest: COMMONS NORMALS: normal inspection of the chest Resp: COMMON NORMALS: normal respiratory effort, No retractions, No use of accessory muscles and clear to auscultation bilaterally AUSCULTATION: clear to auscultation bilaterally Cardio: COMMON NORMALS: regular rate, regular rhythm and No murmurs present (Cardio) RATE: regular rate RHYTHM: regular rhythm GI: COMMON NORMALS: Normal to inspection, nondistended, normoactive bowel sounds present, Soft to palpation and no masses PALPATION: Yes Soft to palpation OTHER: diffuse tenderness Extremity: COMMON NORMALS: normal to inspection and full ROM Neuro: COMMON NORMALS: patient oriented x3, moves all extremities and no focal motor deficits Psych: COMMON NORMALS: mental status grossly normal, Normal thought process present and cooperative THOUGHT PROCESS: Normal thought process present Skin: COMMON NORMALS: no rashes or lesions noted and no wounds GENERAL SKIN EXAM: no rashes or lesions noted Course 2 Vital Signs: Vital signs: Vital Signs Temperature 98.9 F 10/18/24 14:20 Pulse Rate 82 10/18/24 18:37 Respiratory Rate 16 10/18/24 18:37 Pulse Oximetry 99 10/18/24 18:37 Oxygen Delivery Me thod Room Air 10/18/24 14:20 MDM - Abdominal Pain Medical Decision Making Patient presents here with abdominal pain along with vomiting diarrhea she has been well-appearing here blood works normal CT scan showed no acute findings she is felt improved after fluids we will prescribe her Bentyl along with Zofran she has follow-up with her provider tomorrow follow-up as scheduled return if worsening. Medical Records I reviewed the patient's medical records. Lab Data I reviewed the patient's lab results. 10/18/24 15:29 10/18/24 15:29 Labs/Radiology: Radiology Impressions Abdomen/Pelvis CT 10/18/24 14:29 IMPRESSION: 1. Nondistended fluid and gas filled colon without other evidence of inflammation, consistent with a diarrheal illness. 2. Incidental findings above. Laboratory Results WBC 11.43 10^3/uL (3.29-11.43) 10/18/24 15:29 RBC 4.70 10^6/uL (3.85-5.65) 10/18/24 15:29 Hgb 14.10 g/dL (11.27-16.99) 10/18/24 15:29 Hct 43.5 % (36-47) 10/18/24 15:29 MCV 92.6 fl (85-98) 10/18/24 15:29 MCH 30.0 pg (27-33) 10/18/24 15:29 MCHC 32.4 g/dL (30-55) 10/18/24 15:29 RDW 13.9 % (12.1-15.1) 10/18/24 15:29 Plt Count 287 10^3/cmm (157-399) 10/18/24 15:29 MPV 9.7 fL (7.4-10.4) 10/18/24 15:29 Neut % (Auto) 81.1 % 10/18/24 15:29 Lymph % (Auto) 11.4 % 10/18/24 15:29 [place] % (Auto) 5.9 % 10/18/24 15:29 Eos % (Auto) 1.0 % 10/18/24 15:29 Baso % (Auto) 0.3 % 10/18/24 15:29 Neut # (Auto) 9.27 10^3/uL (1.8-7.7) H 10/18/24 15:29 Lymph # (Auto) 1.3 10^3/uL (0.8-4.8) 10/18/24 15:29 [place] # (Auto) 0.7 10^3/uL (0.2-0.9) 10/18/24 15:29 Eos # (Auto) 0.1 10^3/uL (0.0-0.8) 10/18/24 15: Baso # (Auto) 0.0 10^3/uL (0.0-0.1) 10/18/24 15: Nucleated RBC % (auto) 0 % 10/18/24 15: Nucleated RBCs # 0.0 /100WBC 10/18/24 15: Sodium 141 mmol/L (136-145) 10/18/24 15: Potassium 3.5 mmol/L (3.5-5.1) 10/18/24 15: Chloride 108 mmol/L (98-107) H 10/18/24 15: Carbon Dioxide 18 mmol/L (22-29) L 10/18/24 15: Anion Gap 18.5 (5-19) 10/18/24 15: BUN 10 mg/dL (6-20) 10/18/24 15: Creatinine 0.7 mg/dL (0.5-0.9) 10/18/24 15: GFR Calculation 98.9 mL/min (90-130) 10/18/24 15: Glucose 91 mg/dL (65-115) 10/18/24 15: Calculated Osmolality 291 mOsm/kg (285-295) 10/18/24 15: Calcium 9.0 mg/dL (8.5-10.5) 10/18/24 15: Total Bilirubin 0.6 mg/dL (0.15-1.2) 10/18/24 15: AST 15 U/L (0-32) 10/18/24 15: ALT 14 U/L (0-33) 10/18/24 15:29 Alkaline Phosphatase 65 U/L (35-105) 10/18/24 15: Total Protein 7.4 g/dL (6.6-8.7) 10/18/24 15:29 Albumin 4.2 g/dL (3.5-5.2) 10/18/24 15:29 Globulin 3.2 g/dL (1.3-4.6) 10/18/24 15:29 Lipase 21 U/L (13-60) 10/18/24 15:29 HCG, Qual Negative (Negative) 10/18/24 15:29 Urine Color Yellow (Yellow) 10/18/24 17:53 Urine Appearance Cloudy (CLEAR) A 10/18/24 17:53 Urine pH 5.0 (5-7) 10/18/24 17:53 Ur Specific [place] >= 1.099 (1.005-1.030) H 10/18/24 17:53 Urine Protein 2+ (Negative) A 10/18/24 17:53 Urine Glucose (UA) Negative (Normal) 10/18/24 17:53 Urine Ketones 1+ (Negative) H 10/18/24 17:53 Urine Blood Negative (Negative) 10/18/24 17:53 Urine Nitrate Negative (Negative) 10/18/24 17:53 Urine Bilirubin Negative (Negative) 10/18/24 17:53 Urine Urobilinogen 0.2 mg/dL (Negative) 10/18/24 17:53 Ur Leukocyte Esterase Negative (Negative) 10/18/24 17:53 Urine RBC 51-100 /hpf (0-2) H 10/18/24 17:53 Urine WBC 6-10 /hpf (0-5) 10/18/24 17:53 Ur Squamous Epith Cells 51-100 /hpf (0-5) 10/18/24 17:53 Amorphous Sediment Not Reportable 10/18/24 17:53 Urine Bacteria Trace /hpf (NONE) 10/18/24 17:53 Hyaline Casts 0-4 /lpf H 10/18/24 17:53 All radiology interpretation(s) finalized by discharge Discharge Plan Discharge Patient Disposition: Home Clinical Impression: Abdominal pain, Vomiting Condition: Stable Prescriptions: New ondansetron 4 mg tablet,disintegrating 4 mg PO Q6H PRN (Reason: nausea and vomiting) Qty: 14 0RF dicyclomine 20 mg tablet 20 mg PO TID PRN (Reason: abdominal pain) Qty: 20 0RF No Action meloxicam 15 mg tablet 15 mg PO DAILY quetiapine 100 mg tablet 100 mg PO BID duloxetine 30 mg capsule,delayed release(DR/EC) 30 mg PO DAILY Zepbound 7.5 mg/0.5 mL pen injector 7.5 mg SUBCUT Q7D Discharge Orders: Discharge ED (Routine); Ordered 10/18/24 Ordered By: David Dumont Referrals: Mendy Hobbs PA [Primary Care Provider, Physicians Account Services Representative] Discharge Diet: Advance as tolerated Discharge Activity: Resume usual activity Patient Instructions: Acute Nausea and Vomiting (ED), Abdominal Pain (ED) Print Language: Kiswahili Coding Level of Care Code ED Pit Operator for Mindy Hernandez
[2024-10-18] MEDS: sodium chloride 0.9% 1,000 ML 999 ML IV ×2 (14:41→16:54)
[2024-10-18] MEDS: ondansetron 2 mg/ML SDV 2 mL 4 MG IVP (14:41)
[2024-10-18 15:36] LABS: Basophils % 0.3 %; Eosinophils # 0.1 10^3/uL (0.0-0.8); Hematocrit 43.5 % (36-47); Lymphocytes # 1.3 10^3/uL (0.8-4.8); Lymphocytes % 11.4 %; Mean Corpuscular HGB Conc 32.4 g/dL (30-55); Mean Corpuscular Volume 92.6 fl (85-98); Mean Platelet Volume 9.7 fL (7.4-10.4); Monocytes # 0.7 10^3/uL (0.2-0.9); Monocytes % 5.9 %; Neutrophils # 9.27 10^3/uL (1.8-7.7); Neutrophils % 81.1 %; Nucleated Red Blood Cells % 0 %; Platelet Count 287 10^3/cmm (157-399); Red Cell Distribution Width 13.9 % (12.1-15.1); White Blood Count 11.43 10^3/uL (3.29-11.43)
[2024-10-18] MEDS: metoclopramide 5 mg/mL SDV 2 mL 10 MG IVP (15:37)
[2024-10-18] MEDS: diphenhydrAMINE 50 mg/mL SDV 1mL IVP (15:37)
[2024-10-18] MEDS: ketorolac 30 mg/mL INJ 15 MG IVP (15:37)
[2024-10-18 15:43] VITALS: O2SAT 95
[2024-10-18 15:54] LABS: Alanine Aminotransferase 14 U/L (0-33); Albumin Level 4.2 g/dL (3.5-5.2); Alkaline Phosphatase 65 U/L (35-105); Aspartate Amino Transferase 15 U/L (0-32); Blood Urea Nitrogen 10 mg/dL (6-20); Carbon Dioxide 18 mmol/L (22-29); Chloride 108 mmol/L (98-107); Creatinine Clr Calc Pharmacy 119.3146; Globulin 3.2 g/dL (1.3-4.6); Glomerular Filtration Rate 98.9 mL/min (90-130); Glucose 91 mg/dL (65-115); Lipase 21 U/L (13-60); Osmolality Calculated 291 mOsm/kg (285-295); Sodium 141 mmol/L (136-145); Total Bilirubin 0.6 mg/dL (0.15-1.2); Total Protein 7.4 g/dL (6.6-8.7)
[2024-10-18 15:55] LABS: HCG, Serum Qual Negative (Negative)
[2024-10-18 15:56] LABS: Anion Gap 18.5 (5-19); Potassium 3.5 mmol/L (3.5-5.1)
[2024-10-18] MEDS: iohexol 350 mg/mL 500 mL Btl (per mL) IV (16:11)
[2024-10-18 18:24] LABS: Bilirubin Urine Negative (Negative); Blood Urine Negative (Negative); Glucose Urine UA Negative (Normal); Ketones Urine 1+ (Negative); Leukocyte Esterase Urine Negative (Negative); Nitrate Urine Negative (Negative); Protein Urine 2+ (Negative); Urine Appearance Cloudy (CLEAR); Urine Color Yellow (Yellow); Urobilinogen Urine 0.2 mg/dL (Negative)
[2024-10-18 18:30] LABS: Add Urine Microscopic? YES; Bacteria Urine Trace /hpf; Hyaline Casts Urine 0-4 /lpf; RBC Urine 51-100 /hpf (0-2); Squamous Epithelial Cell Urine 51-100 /hpf (0-5)
[2024-10-18 18:34] LABS: Specific Gravity, Urine >= 1.099 (1.005-1.030)
[2024-10-18] MEDS: dicyclomine 20 mg Tablet PO (18:34)
[2024-10-18 18:35] LABS: Add Urine Culture? Yes
[2024-10-18 18:37] VITALS: PULSE 82; RESP 16; O2SAT 99
== END 2024-10-18 19:11 | disposition home or self-care (01) ==
PROVIDERS: Emergency Provider Emergency Medicine; PCP Physician Assistant
DX: R10.9 Unspecified abdominal pain (principal); R11.10 Vomiting, unspecified; F17.210 Nicotine dependence, cigarettes, uncomplicated
CPT/HCPCS: 36415; 74177; 80053; 81001; 83690; 84703; 85025; 87086; 96374; 96375; 99285; J1200; J1885; J2405; J2765; J7030; J9999